=== PATIENT | female | born 1945 | race Caucasian/White ===

== ENCOUNTER → 2023-06-10 08:30 | Outpatient (REF) | payer MEDICARE, OTHER, SELFPAY ==
[2023-06-10 12:59] LABS: % Basophils 1.1 % (0-2); % Eosinophils 3.1 % (0-6); % Immature Granulocytes 0.4 % (0-0.5); % Lymphocytes 24.7 % (20.5-51.1); % Monocytes 9.2 % (1.7-9.3); % Neutrophils 61.5 % (42.2-75.2); Absolute Basophils 0.1 10^3/uL (0-0.2); Absolute Eosinophils 0.2 10^3/uL (0-0.7); Absolute Lymphocytes 1.3 10^3/uL (1.2-3.4); Absolute Monocytes 0.5 10^3/uL (0.1-0.6); Absolute Neutrophils 3.2 10^3/uL (1.4-6.5); Hematocrit 39.2 % (37.0-47.0); Hemoglobin 12.6 g/dL (12.0-16.0); Mean Corp Hgb Conc. 32.1 g/dL (33.0-37.0); Mean Corpuscular Hgb 29.7 pg (27.0-31.0); Mean Corpuscular Volume 92.5 fL (81.0-99.0); Mean Platelet Volume 10.6 fL (7.4-10.4); Nucleated Red Blood Cells % 0 %; Platelet Count 273 10^3/uL (130-400); Red Blood Cell Count 4.24 10^6/uL (4.20-5.40); Red Cell Dist. Width 12.8 % (11.5-14.5); White Blood Cell Count 5.2 10^3/uL (4.8-10.8)
[2023-06-10 13:09] LABS: Erythrocyte Sed Rate 10 mm/hour (0-20)
[2023-06-10 13:14] LABS: NT-proBNP 131 pg/ml
[2023-06-10 13:16] LABS: C-Reactive Protein < 5.00 mg/L (0.0-10.00)
[2023-06-10 13:26] LABS: ALT (SGPT) < 10 U/L (0-35); AST (SGOT) 27 U/L (14-36); Albumin 4.3 g/dl (3.5-5.0); Alkaline Phosphatase 72 U/L (38-126); Blood Urea Nitrogen 20 mg/dl (7-17); Calcium 9.4 mg/dl (8.4-10.2); Carbon Dioxide 30 mmol/L (22-30); Chloride 99 mmol/L (98-107); Glucose 106 mg/dl (70-99); Potassium 4.5 mmol/L (3.5-5.1); Sodium 135 mmol/L (135-145); Total Bilirubin 0.8 mg/dl (0.2-1.3); Total Cholesterol 240 mg/dl (50-199); Total Protein 6.9 g/dl (6.3-8.2); Triglyceride 78 mg/dl (10-149); Very Low Density Lipoprotein 15 mg/dl (0-30); eGFR > 60.00
[2023-06-10 13:36] LABS: HDL Cholesterol 122 mg/dl; LDL Cholesterol, Calculated 103 mg/dl
[2023-06-10 13:46] LABS: TSH Reflex To Free T4 1.62 uIU/ml (0.47-4.68)
[2023-06-11 15:52] LABS: Rheumatoid Agglutinin Positive (<10 IU)
[2023-06-11 17:07] LABS: Rheumatoid Agg. Semi-quant 1024 IU
[2023-06-12 15:35] LABS: ANA, IgG Reflex to HEp-2 Detected (None Detected)
[2023-06-16 10:36] LABS: ANA Pattern Homogeneous; ANA, HEp-2, IgG Detected (<1:80)
== END ==
LOC: HWLAB 08:30
PROVIDERS: ATTENDING PHYSICIAN Nurse Practitioner Family
DX: Z76.89 Persons encountering health services in other specified circumstances (principal); G20.A1 Parkinson's disease without dyskinesia, without mention of fluctuations; R22.0 Localized swelling, mass and lump, head; R51.9 Headache, unspecified; H92.03 Otalgia, bilateral; R07.9 Chest pain, unspecified; R06.02 Shortness of breath
CPT/HCPCS: 36415; 80053; 80061; 83880; 84443; 85025; 85652; 86038; 86039; 86140; 86430; 86431; 93005

== ENCOUNTER → 2023-07-07 09:32 | Outpatient (REF) | payer MEDICARE, OTHER, SELFPAY | LOC: PAVMRI 09:32 | PROVIDERS: ATTENDING PHYSICIAN Nurse Practitioner Family | DX: R22.0 Localized swelling, mass and lump, head (principal); R51.9 Headache, unspecified | CPT/HCPCS: 70553; A9575 ==

== ENCOUNTER → 2023-08-20 15:57 | Outpatient (REF) | payer MEDICARE, OTHER, SELFPAY ==
[2023-08-20 17:08] LABS: Urine Albumin Negative (Neg - Trace); Urine Bilirubin Negative (Negative); Urine Character Clear (Clear); Urine Color Yellow; Urine Glucose Negative (Negative); Urine Ketone Negative (Negative); Urine Leukocyte Trace (Negative); Urine Nitrite Negative (Negative); Urine Occult Blood Negative (Negative); Urine Urobilinogen Negative (Neg - 1+); Urine pH 6.5 (5.0-9.0)
[2023-08-20 17:32] LABS: Urine Red Blood Cell 0-2 /HPF (0-2)
[2023-08-20 17:33] LABS: Urine Bacteria Few (Negative)
[2023-08-20 17:34] LABS: Erythrocyte Sed Rate 12 mm/hour (0-20)
[2023-08-20 17:38] LABS: Complement C3 112 mg/dl (88-165); IgG 962 mg/dl (700-1600)
[2023-08-20 17:52] LABS: Protein/creatinine Ratio 0.5; Urine Protein 13 mg/dl
[2023-08-20 17:58] LABS: TSH Reflex To Free T4 1.91 uIU/ml (0.47-4.68)
[2023-08-20 18:33] LABS: Hepatitis B Surface Antigen Negative (Negative)
[2023-08-20 18:51] LABS: Hepatitis B Surface Antibody Negative
[2023-08-21 12:45] LABS: HIV Combo Negative (Negative)
[2023-08-22 11:53] LABS: Thyroid Peroxidase Ab (TPO) <0.3 IU/mL (0.0-9.0)
[2023-08-22 21:34] LABS: ds-DNA Ab, IgG Reflex To Titer 6 IU (0-24)
[2023-08-22 21:44] LABS: ANA, IgG Reflex to HEp-2 Detected (None Detected)
[2023-08-22 22:35] LABS: CCP Antibody IgG/IgA 4 Units (0-19)
[2023-08-22 22:44] LABS: Thyroid Stim. Immunoglobulin <0.10 IU/L (<=0.54)
[2023-08-23 00:24] LABS: HCV Quant by NAAT IU/mL Not Detected; HCV Quant by NAAT Interp Not Detected (Not Detected); HCV Quant by NAAT Log IU/mL Not Detected log IU/mL
[2023-08-23 07:34] LABS: SSA 52 (Ro)(ENA) Ab, IgG 7 AU/mL (0-40); SSA 60 (Ro)(ENA) Ab, IgG 4 AU/mL (0-40); SSB (La)(ENA) Ab, IgG 2 AU/mL (0-40)
== END ==
LOC: REG 15:57
PROVIDERS: ATTENDING PHYSICIAN Internal Medicine Rheumatology; FAMILY PHYSICIAN Nurse Practitioner Family
DX: E07.9 Disorder of thyroid, unspecified (principal); J34.89 Other specified disorders of nose and nasal sinuses; R20.0 Anesthesia of skin; R21 Rash and other nonspecific skin eruption; R76.8 Other specified abnormal immunological findings in serum
CPT/HCPCS: 36415; 81003; 81015; 82570; 82784; 83521; 84155; 84156; 84165; 84443; 84445; 85652; 86038; 86140; 86160; 86200; 86225; 86235; 86334; 86376; 86430; 86618; 86706; 87340; 87389; 87522

== ENCOUNTER → 2023-09-14 12:10 | Outpatient (REF) | payer MEDICARE, OTHER, SELFPAY ==
[2023-09-14 14:56] LABS: Blood Urea Nitrogen 18 mg/dl (7-17); Calcium 9.3 mg/dl (8.4-10.2); Carbon Dioxide 29 mmol/L (22-30); Chloride 101 mmol/L (98-107); Glucose 72 mg/dl (70-99); Potassium 4.4 mmol/L (3.5-5.1); Sodium 137 mmol/L (135-145); eGFR > 60.00
== END ==
LOC: REG 12:10
PROVIDERS: ATTENDING PHYSICIAN Nurse Practitioner Family
DX: R52 Pain, unspecified (principal); R51.9 Headache, unspecified; G20.A1 Parkinson's disease without dyskinesia, without mention of fluctuations; E78.2 Mixed hyperlipidemia
CPT/HCPCS: 36415; 80048

== ENCOUNTER → 2023-09-17 13:21 | Outpatient (REF) | payer MEDICARE, OTHER, SELFPAY | LOC: RAD 13:21 | PROVIDERS: ATTENDING PHYSICIAN Nurse Practitioner Family | DX: R52 Pain, unspecified (principal) | CPT/HCPCS: 71260; 74177; Q9967 ==

== ENCOUNTER → 2023-10-06 13:05 | Outpatient (REF) | payer MEDICARE, OTHER, SELFPAY | LOC: RAD 13:05 | PROVIDERS: ATTENDING PHYSICIAN Nurse Practitioner Family | DX: K11.8 Other diseases of salivary glands (principal) | CPT/HCPCS: 76536 ==

== ENCOUNTER → 2023-12-07 07:07 | Outpatient (REF) | payer MEDICARE, OTHER, SELFPAY | LOC: RAD 07:07 | PROVIDERS: ATTENDING PHYSICIAN Internal Medicine Geriatric Medicine | DX: G47.34 Idiopathic sleep related nonobstructive alveolar hypoventilation (principal) | CPT/HCPCS: 70486 ==

== ENCOUNTER 2024-03-26 11:08 | Inpatient (IN) | payer MEDICARE, OTHER, SELFPAY ==
[2024-03-25 10:08] VITALS: BP 174/71
--- NOTE | 2024-03-25 10:41 | ED.GENMED ---
History of Present Illness
General
Chief Complaint: Swallowing Problem
Time Seen by Provider: 03/25/24 10:28
History of Present Illness
History of Present Illness:
TIME OF INITIAL ENCOUNTER: 10:30 AM
HPI: Over the past couple of weeks, the patient's been having increasing trouble with swallowing with sensation of water/food getting stuck 'in my chest'. She was supposed to have a double esophagram contrast 30 today however the symptoms were so
severe that she could not go to the appointment. She states that she had a temperature of 102 last night. She states that there is 'something stuck in my chest'. Last week, she also was concerned because she had an episode where she lost vision
and hearing and family is concerned that maybe she had a stroke. She has not been to GI. Her primary care doctor ordered the esophagram study. She could not tell me clearly what she last ate at 3 PM yesterday.
EXAM:
GENERAL: Appears rather uncomfortable
HEENT: Slightly dry oral mucosa
CARDIOVASCULAR: No murmurs, normal heart rate, regular rhythm, No chest wall tenderness
PULMONARY: No respiratory distress, breath sounds are clear and equal
ABDOMEN: Soft with no peritoneal signs, no tenderness
NEUROLOGIC: Some choreoathetoid kind of movements noted spontaneously
PSYCHIATRIC: Appropriate mental status, normal insight and judgement
EXTREMITIES: Nontender, no edema, moves all extremities equally
SKIN: No rash, no lesions
NUMBER AND COMPLEXITY OF PROBLEMS ADDRESSED AT THE ENCOUNTER
� Chronic conditions affecting care: Parkinson's
� Acute Exacerbation and/or Progression of Chronic Illness: This is an acute problem
� Differential Diagnosis includes: Esophageal dysmotility, esophageal stricture, viral syndrome, anemia
AMOUNT AND/OR COMPLEXITY OF DATA TO BE REVIEWED AND ANALYZED
� I performed an independent evaluation of and my interpretation is:
EKG:
CT:
X-rays:
Laboratory Studies: Flu positive, white count 4.7, sodium 128
Other:
� Review of other/old records: The patient was here in 2022 with a skin tear
� Clinical information was obtained by an independent historian: I spoke to and daughter at bedside
� Prescriptions/Medications Considered but not given:
� Further testing considered but not performed:
RISK OF COMPLICATIONS AND/OR MORBIDITY OR MORTALITY OF PATIENT MANAGEMENT
� Social determinants of health affecting care: Lives at home
� Discussion with other providers:
� Escalation of care including admission/observation vs risk of discharge considered: Initially, when the patient started drinking water she had tremendous difficulty and pain with getting the water down. I gave glucagon,
Pepcid, and fluids. Pain persisted. She also has other concerns including dizziness and had a fever last night�she is flu positive. I discussed with GI, Dr. Hernández who suggested we obtain a CT of the chest. CT shows no obvious abnormality to the
esophagus.
ANY OTHER UPDATES:
3:30 PM: The patient was able to get some sips of water down however feels that it 'is still building up and feels that she cannot drink anything further.
4 PM: The patient still has rather significant discomfort when she takes anything p.o. Family concerned because she has been having poor p.o. intake and her sodium is already low. I have concerned about her going home and continuing not being able
to drink. She has been having dizziness/vertiginous symptoms as well.
Phy Exam
Physical Exam
Physical Exam:
See HPI
Course
Orders/Labs/Results
Orders:
Orders
03/25/24 10:42
0.9% Sodium Chloride 500 ml [Nss] 500 ml IV BOLUS
Famotidine [Pepcid] 20 mg IV NOW STA
Glucagon [GlucaGen] 1 mg IV NOW STA
Ondansetron Injectable [Zofran] 4 mg IV NOW STA
CR Chest Portable - 1 View Urgent
Comment:
Reason For Exam: sob chest pain
Reason Study Needs to be Portable: Unable to Transport
03/25/24 10:45
Electrocardiogram (*1) Urgent
Reason for Study: Chest Pain
EKG- Treatment ONCE
03/25/24 11:08
Complete Blood Count/With Diff Urgent
Comprehensive Metabolic Panel Urgent
Lipase Urgent
03/25/24 11:28
COVID-19 Antigen Urgent
Source: Nasal Swab
Influenza A+B Rapid Molecular Urgent
JACK Source: Nasal Swab
Specimen Description:
03/25/24 13:44
CT Chest With Iv Contrast Urgent
Comment:
Reason For Exam: chest pain, trouble swallowing, esoph issue?
03/25/24 14:24
Lorazepam [Ativan] 0.5 mg IV NOW STA
Lorazepam [Ativan] 2 mg .ROUTE .STK-MED ONE
03/25/24 Dinner
IDDSI 4 - Pureed
At Your Request: Limited Participation
03/25/24 15:35
Pantoprazole [Protonix IV] 40 mg IV NOW STA
03/25/24 16:25
Admit/Transfer Patient As Directed
Co-Sign Provider:
Level of Care: Observation services
Assign to:: Medical/Surgical
Physician / Group: dajuan
Diagnosis: influenza, dysphagia
03/25/24 16:26
Code Status As Directed
Resuscitation Status: Full Code
PRN Pain Medication Management As Directed
May give lesser potent ordered pain med per pt: Yes
preference::
Protocol:: Medication orders for pain may be administered in a
manner that supports deferring to patient preference
when the pt is:
- Requesting an ordered lesser potent pain medication.
Least to most potent pain medications are defined
as: acetaminophen < NSAID < tramadol < opioids
(morphine, oxycodone, hydromorphone).
- Requesting a lesser dose of the same medication IF
ORDERED.
- Requesting a less intrusive route of administration
if both routes are prescribed by the provider (PO <
IV).
03/25/24 19:42
Acetaminophen [Tylenol] 650 mg PO Q4HPRN PRN
03/25/24 19:42
GASTROINTESTINAL CONSULT Routine
Consulting Provider: Lui Hernández
Was physician already notified: Yes
Activity As Directed
Activity Level: As Tolerated
Vital Signs As Directed
Frequency: Per unit guidelines
RF Esophagus-Double Contrast Routine
Comment:
Reason For Exam: dysphagia
Speech Therapy Eval & Treat Routine
DX Deep Vein Thrombosis Video Routine
03/25/24 20:00
Heparin 5,000 units SC Q12
Oseltamivir Phosphate [Tamiflu] 75 mg PO BID
03/26/24 06:00
Complete Blood Count/With Diff IN AM
Comprehensive Metabolic Panel IN AM
Abnormal Lab Results
03/25/24
11:08
WBC 4.7 L 10^3/uL
(4.8-10.8)
Abs Immat Gran (auto) 0.2 H 10^3/uL
(0-0.05)
Absolute Lymphs (auto) 0.2 L 10^3/uL
(1.2-3.4)
Immature Gran % 3.6 H %
(0-0.5)
Neutrophils % 82.1 H %
(42.2-75.2)
Lymphocytes % 3.8 L %
(20.5-51.1)
Monocytes % 9.7 H %
(1.7-9.3)
Sodium 128 L mmol/L
(135-145)
Chloride 90 L mmol/L
(98-107)
Creatinine 0.5 L mg/dL
(0.6-1.0)
Glucose 119 H mg/dl
(70-99)
Calcium 8.2 L mg/dl
(8.4-10.2)
03/25/24 11:08
03/25/24 11:08
Vital Signs
Initial and Last Documented VS:
Initial Vital Signs
Temp Pulse Resp BP Pulse Ox
37.4 C 77 18 174/71 97
03/25/24 10:08 03/25/24 10:08 03/25/24 10:08 03/25/24 10:08 03/25/24 10:08
Last Documented Vital Signs
Temp Pulse Resp BP Pulse Ox
37.1 C 90 17 160/70 97
03/25/24 23:26 03/25/24 23:26 03/25/24 23:26 03/25/24 23:26 03/25/24 23:26
*Critical Care Note
Total Time (30-74mins, 75-104mins- exclusive of procedures): Not Applicable
ED Attending Note
-
Portions of this chart may have been created with voice recognition software.� Occasional wrong word or��sound alike� substitutions may have occurred due to the inherent limitations of voice recognition software.
Discharge Plan
Departure
Patient Disposition: Admit
Date of Disposition: 03/25/24
Time of Disposition: 15:42
Presentation/result/management discussed w/ accepting MD/DO: Hospitalist
Patient with high blood pressure during this ER visit?: Yes
Discharge Problem:
Esophagitis
Interventions
Interventions:
*Risk Screen - Suicide Last Done: 03/25/24 10:08
*General Assessment Last Done: 03/25/24 10:08
*Neglect/Abuse Screening Last Done: 03/25/24 11:10
ED- Fall Risk Assessment Last Done: 03/25/24 11:24
*ED COVID-19 Vaccine History Last Done: 03/26/24 01:53
*Nursing Disposition Last Done: 03/25/24 19:40
TZ-Sxqivy-Zkgbytavis Assessment Last Done: 03/25/24 11:24
ED-EENT Assessment Last Done: 03/25/24 11:24
ED- Neurological Assessment Last Done: 03/25/24 11:24
ED- Pulmonary Assessment Last Done: 03/25/24 11:24
ED Swallowing Screen Last Done: 03/25/24 17:33
Discharge Date and Time
Discharge Date/Time: 03/25/24 19:40
[2024-03-25 11:12] VITALS: BMI 27.1
[2024-03-25] MEDS: PEPCID 20 MG IV (11:13)
[2024-03-25] MEDS: ZOFRAN 4 MG IV (11:13)
[2024-03-25] MEDS: GlucaGen 1 MG IV (11:14)
[2024-03-25] MEDS: NSS 500 IV (11:14)
[2024-03-25 11:46] LABS: ALT (SGPT) < 10 U/L (0-35); AST (SGOT) 30 U/L (14-36); Albumin 4.1 g/dl (3.5-5.0); Alkaline Phosphatase 78 U/L (38-126); Blood Urea Nitrogen 11 mg/dl (7-17); Calcium 8.2 mg/dl (8.4-10.2); Carbon Dioxide 29 mmol/L (22-30); Chloride 90 mmol/L (98-107); Estimated Creatinine Clearance 67 ml/min; Glucose 119 mg/dl (70-99); Lipase 39 U/L (23-300); Potassium 4.3 mmol/L (3.5-5.1); Sodium 128 mmol/L (135-145); Total Bilirubin 0.8 mg/dl (0.2-1.3); Total Protein 6.7 g/dl (6.3-8.2); eGFR > 60.00
[2024-03-25 12:00] VITALS: BP 164/78
[2024-03-25 12:00] LABS: % Basophils 0.8 % (0-2); % Immature Granulocytes 3.6 % (0-0.5); % Lymphocytes 3.8 % (20.5-51.1); % Monocytes 9.7 % (1.7-9.3); % Neutrophils 82.1 % (42.2-75.2); Absolute Immature Granulocytes 0.2 10^3/uL (0-0.05); Absolute Lymphocytes 0.2 10^3/uL (1.2-3.4); Absolute Monocytes 0.5 10^3/uL (0.1-0.6); Absolute Neutrophils 3.9 10^3/uL (1.4-6.5); Hematocrit 37.1 % (37.0-47.0); Hemoglobin 12.7 g/dL (12.0-16.0); Mean Corp Hgb Conc. 34.2 g/dL (33.0-37.0); Mean Corpuscular Hgb 29.6 pg (27.0-31.0); Mean Corpuscular Volume 86.5 fL (81.0-99.0); Mean Platelet Volume 10.2 fL (7.4-10.4); Nucleated Red Blood Cells % 0 %; Platelet Count 192 10^3/uL (130-400); Red Blood Cell Count 4.29 10^6/uL (4.20-5.40); Red Cell Dist. Width 12.6 % (11.5-14.5); White Blood Cell Count 4.7 10^3/uL (4.8-10.8)
[2024-03-25 12:00] LABS: COVID-19 Antigen Negative (Negative)
[2024-03-25] MEDS: ATIVAN 0.5 MG IV (14:26)
[2024-03-25] MEDS: PROTONIX IV 40 MG IV (15:42)
--- NOTE | 2024-03-25 16:37 | HPS.HSE ---
Family Physician
-
Family Physician: Lloyd Mendoza
Chief Complaint
-
swallowing difficulty
History of Present Illness
78-year-old female past medical history of Parkinson's, anxiety, presenting with multiple complaints. She has been having head pressure involving her sinuses for the past several months as well as spitting up phlegm after eating for several months.
Over the past week she has developed sensation of food and liquids getting stuck in her chest. Sometimes she has to vomit because the food will not pass.
Over the weekend she had an episode where she lost her vision and hearing which came back after an hour.
Over the past few days she has developed cough, fevers. Had a temperature of 102 last night. Has been having constipation last bowel movement 2 days ago.
Medical History
Past Medical History
Past Medical History: Reports Other (Parkinson's, anxiety,)
Past Surgical History: Reports None
Social History
Tobacco: Non-smoker
Alcohol: None
Drug: None
Family History
Family History: Not pertinent
Allergies / Home Medications
Allergies reflects when Allergies were last updated in [facility].
Home Medications with original date entered in [facility]
Allergy/Medication List:
Allergies
Allergy/AdvReac Type Severity Reaction Status Date / Time
No Known Allergies Allergy Verified 03/25/24 10:11
Home Medications
omeprazole magnesium 20 mg capsule,delayed release 40 mg (2 x 20 mg) PO BID #56 caps 03/25/24
Review of Systems
-
History Source: Patient
A 12 point ROS was completed and negative except as noted: Yes
Constitutional: Reports No Symptoms
EENT: Reports See HPI
Respiratory: Reports See HPI
Cardiac: Reports No Symptoms
Abdomen/GI: Reports See HPI
: Reports No Symptoms
Musculoskeletal: Reports No Symptoms
Skin: Reports No Symptoms
Neurological: Reports No Symptoms
Endocrine: Reports No Symptoms
Hematologic/Lymphatic: Reports No Symptoms
Psych: Reports No Symptoms
Physical Exam
Vital Signs
Vital Signs
Temp Pulse Resp BP Pulse Ox
99.4 F 79 18 164/78 95
03/25/24 10:08 03/25/24 16:00 03/25/24 10:08 03/25/24 12:00 03/25/24 15:05
Physical Exam
General: Well Developed, Well Nourished and No Apparent Distress
HEENT: NormoCephalic, Moist mucous membranes and Atraumatic
Respiratory: Clear
Cardiac: S1/S2 and Regular Rhythm; No Murmur or Rub
GI: Soft, Non Tender, Non Distended and Normal Bowel Sounds; No Organomegaly
Rectal: Deferred by Provider
Musculoskeletal: No Clubbing, No Cyanosis and No Edema
Skin: No Rash
Neuro: Nonfocal/grossly intact
Laboratory Results
-
03/25/24 11:08
03/25/24 11:08
Laboratory Results
Total Bilirubin 0.8 mg/dl (0.2-1.3) 03/25/24 11:08
AST 30 U/L (14-36) 03/25/24 11:08
ALT < 10 U/L (0-35) 03/25/24 11:08
Alkaline Phosphatase 78 U/L (38-126) 03/25/24 11:08
Lipase 39 U/L (23-300) 03/25/24 11:08
Data Reviewed
-
Lab Data: Labs Reviewed by me
Old Records: Reviewed
Impression/Plan
-
IMPRESSION:
PLAN:
# Influenza A infection
-Today's third day symptoms
-Leukopenia
-CT chest negative
-Tylenol, Tamiflu
# Dysphagia
-Given glucagon in ER
-Supposed to have esophagram as outpatient today
-Pepcid, Protonix given
-Check speech and swallow
-Check esophagram
-Pur�ed diet
-GI consulted
# Mild hyponatremia secondary to decreased p.o. intake from dysphagia/influenza
-IV fluids given
-Continue to monitor
# Agitation likely secondary to anxiety
-Given Ativan
-Continue duloxetine
Parkinson's disease
-Continue carbidopa-levodopa, ropinirole
Full code
DVT prophylaxis�heparin
Regular diet
[2024-03-25 20:25] VITALS: BP 171/71; BMI 26.5
[2024-03-25] MEDS: HEPARIN 5000 UNITS SC (22:46)
[2024-03-25] MEDS: REQUIP 4 MG PO (22:47)
[2024-03-25] MEDS: SINEMET 25-100 2 TABLET PO (22:47)
[2024-03-25] MEDS: TAMIFLU 75 MG PO (22:48)
[2024-03-25 23:26] VITALS: BP 160/70
[2024-03-26 08:00] VITALS: BP 151/74
--- NOTE | 2024-03-26 08:34 | CON.GI ---
Consultation
-
Date/Time Consultation Requested: 03/25/241941
Date/Time Consultation Performed: 03/26/24 0830
Requesting Provider: Dr Love
Performing Provider: Dr Lui Hernández / Mirna Spivey PA-C
Reason for Consultation: dysphagia
Medical History
Chief Complaint / HPI
Chief Complaint: Dysphagia
History of Present Illness:
This is an 78 year old female with a past medical history of Parkinson's disease, anxiety, positive for influenza A who has complained of swallowing issues for the past month. She describes a sensation of food 'getting stuck' and going down slowly,
progressively increasing and worsening in the past month. No heartburn, reflux or nausea. She did vomit yesterday. No abdominal pain or chest pain. She does admit to 'coughing up a lot of mucus.' She was supposed to get an outpatient barium
esophagram yesterday but felt worse, with fever up to 102 yesterday, so came to the ER. She was given glucagon in the ER. Labs showed positive flu A. Chest CT showed no acute abnormalities with unremarkable appearance of the thoracic esophagus.
Patient is a former smoker (quit 40 years ago). She denies alcohol or drug use. She does take ibuprofen 600mg on daily basis for pain. She has never had an endoscopy. Patient took her medications with applesauce yesterday with no issues and has been
tolerating sips of water without difficulty.
Past Medical History
Past Medical History: Other (Parkinsons, anxiety)
Past Surgical History: None
Social History
Tobacco: Former Smoker
Alcohol: None
Drug: None
Family History
Family History: Other (brother had colon cancer, age 50)
Allergies / Home Medications
Allergy/AdvReac Type Severity Reaction Status Date / Time
No Known Allergies Allergy Verified 03/25/24 10:11
�Medication �Instructions �Recorded
carbidopa 25 mg-levodopa 100 mg 2 tab PO QID 03/25/24
tablet
duloxetine 60 mg capsule,delayed 60 mg PO DAILY 03/25/24
release
ropinirole 4 mg tablet 4 mg PO HS 03/25/24
Review of Systems
-
History Source: Patient
All other systems: A 12 pt ROS was Negative except as stated above in HPI
Vital Signs
Temp Pulse Resp BP Pulse Ox
98.7 F 90 17 160/70 97
03/25/24 23:26 03/25/24 23:26 03/25/24 23:26 03/25/24 23:26 03/25/24 23:26
Physical Exam
Exam
General: Well Developed, Well Nourished and No Apparent Distress
Respiratory: Clear
Cardiac: Regular Rhythm
GI: Soft, Non Tender, Non Distended and Normal Bowel Sounds
Skin: Warm and Dry
Neuro: AO x 3
Psych: Calm
Results
WBC 4.7 10^3/uL (4.8-10.8) L 03/25/24 11:08
Hgb 12.7 g/dL (12.0-16.0) 03/25/24 11:08
Hct 37.1 % (37.0-47.0) 03/25/24 11:08
MCV 86.5 fL (81.0-99.0) 03/25/24 11:08
Plt Count 192 10^3/uL (130-400) 03/25/24 11:08
Absolute Neuts (auto) 3.9 10^3/uL (1.4-6.5) 03/25/24 11:08
Sodium 128 mmol/L (135-145) L 03/25/24 11:08
Potassium 4.3 mmol/L (3.5-5.1) 03/25/24 11:08
Chloride 90 mmol/L (98-107) L 03/25/24 11:08
Carbon Dioxide 29 mmol/L (22-30) 03/25/24 11:08
BUN 11 mg/dl (7-17) 03/25/24 11:08
Creatinine 0.5 mg/dL (0.6-1.0) L 03/25/24 11:08
Calcium 8.2 mg/dl (8.4-10.2) L 03/25/24 11:08
Total Bilirubin 0.8 mg/dl (0.2-1.3) 03/25/24 11:08
AST 30 U/L (14-36) 03/25/24 11:08
ALT < 10 U/L (0-35) 03/25/24 11:08
Alkaline Phosphatase 78 U/L (38-126) 03/25/24 11:08
Lipase 39 U/L (23-300) 03/25/24 11:08
Diagnostic Image Results:
Chest CT 03/25/24:
1. No acute disease within the chest.
2. Gross unremarkable appearance of the thoracic esophagus. No mediastinal masses or areas of extrinsic compression identified. No hiatal hernia.
3. Age-indeterminate mild compression deformity of the L1 vertebral body, new compared to the prior CT from 09/17/2023.
Prior GI Procedures:
EGD: never
Colonoscopy: ~3-4 years ago, normal per patient
Assessment / Plan
-
78 year old female with Parkinson's, anxiety, currently influenza A positive with complaints of progressively worsening dysphagia to solid food for the past month. Currently tolerating applesauce and water without issue.
IMPRESSION / PLAN:
Dysphagia
- barium esophagram has been ordered; await results
- dysphagia may be secondary to underlying Parkinson's vs esophagitis vs stricture/mass
- Speech therapy consult
- to consider endoscopy outpatient pending upper GI series results
All other medical problems managed per hospitalist.
-
-
Thank you for consultation and allowing me to participate in the patient's care. Please call the court liaison GI physician during the after hours with any questions or concerns.
[2024-03-26 09:00] VITALS: BP 151/74
[2024-03-26] MEDS: SINEMET 25-100 2 TABLET PO ×4 (09:02→21:31)
[2024-03-26] MEDS: TAMIFLU 75 MG PO ×2 (09:07→19:47)
[2024-03-26] MEDS: HEPARIN 5000 UNITS SC ×2 (09:07→19:48)
[2024-03-26] MEDS: CYMBALTA DELAYED RELEASE 60 MG PO (09:07)
[2024-03-26 09:11] LABS: ALT (SGPT) < 10 U/L (0-35); AST (SGOT) 35 U/L (14-36); Albumin 3.9 g/dl (3.5-5.0); Alkaline Phosphatase 89 U/L (38-126); Blood Urea Nitrogen 11 mg/dl (7-17); Calcium 8.4 mg/dl (8.4-10.2); Carbon Dioxide 33 mmol/L (22-30); Chloride 94 mmol/L (98-107); Estimated Creatinine Clearance 58 ml/min; Glucose 103 mg/dl (70-99); Potassium 3.7 mmol/L (3.5-5.1); Sodium 133 mmol/L (135-145); Total Bilirubin 0.7 mg/dl (0.2-1.3); Total Protein 6.4 g/dl (6.3-8.2); eGFR > 60.00
[2024-03-26 09:41] LABS: % Basophils 0.7 % (0-2); % Immature Granulocytes 0.7 % (0-0.5); % Lymphocytes 26.3 % (20.5-51.1); % Neutrophils 53.3 % (42.2-75.2); Absolute Lymphocytes 0.7 10^3/uL (1.2-3.4); Absolute Monocytes 0.5 10^3/uL (0.1-0.6); Absolute Neutrophils 1.5 10^3/uL (1.4-6.5); Hematocrit 39.2 % (37.0-47.0); Hemoglobin 13.3 g/dL (12.0-16.0); Mean Corp Hgb Conc. 33.9 g/dL (33.0-37.0); Mean Corpuscular Volume 88.3 fL (81.0-99.0); Mean Platelet Volume 10.4 fL (7.4-10.4); Nucleated Red Blood Cells % 0 %; Platelet Count 204 10^3/uL (130-400); Red Blood Cell Count 4.44 10^6/uL (4.20-5.40); Red Cell Dist. Width 12.6 % (11.5-14.5); White Blood Cell Count 2.7 10^3/uL (4.8-10.8)
--- NOTE | 2024-03-26 09:57 | PTOTSP ---
Speech Pathology
Clinical Swallow Evaluation
78F with Parkinson's disease, admitted for influenza and dysphagia symptoms.
P/w clinical s/s of an impaired oropharyngeal swallow characterized by odynophagia, increased phlegm production post swallow, and regurgitation of liquids and solids. Suspect esophageal component, esophagram planned.
Limited trials presented this date due to pt complaints of severe odynophagia and epigastric pain with initial PO trials.
Recommend:
1. Puree (IDDSI 4), thin liquids
2. Meds as best tolerated, likely whole in puree
3. Aspiration precautions - small bites, single sips, slow rate, cyclic ingestion ([id number]-wosr-sip)
4. Reflux precautions - upright with meals, upright at least 30 minutes post meal
5. Consider possible video swallow study via outpatient pending esophagram
6. Consider outpatient speech therapy for Parkinson's dx (also notes difficulty with speech, voice, and cognitive-linguistic skills)
7. [employer]ATMENT SUPERVISOR to follow up re: to assess tolerance of current diet level and upgrade as able; provide dysphagia tx at the acute care level; cognitive linguistic evaluation as able
--- NOTE | 2024-03-26 11:29 | CON.NEURO ---
Neuro Assessment/Plan
Assessment
Acute onset ataxia in addition to vertigo patient with a prior history of Parkinson's disease diagnosed in 2008
Plan
check orthostatics
Continue duloxetine
Provide entacapone to add to the patient's usual carbidopa/levodopa in hopes of reducing freezing episodes that the patient describes
Patient may require amantadine dosing routinely to reduce dyskinesias
Agree with speech and physical therapy to improve dysphagia and gait
Will follow peripherally
Consultation
Order
Date of Consultation: 03/26/24
Requesting Provider: Hospitalist
Reason for Consult: Gait dysfunction
Subjective/Objective
Subjective Data
Date of Service: March 26, 2024
Right-Handed
Patient presented to this [facility] emergency department 1 day ago due to long-term swallowing dysfunction beginning approximately 1 month prior to that presentation (January 2024).
Having: light-headedness, dizziness (near constant), falling three times in past year.
No longer has a routine neurologist. Diagnosed in 2008 with Parkinson disease due to tremors (patient provided incorrect date). Unclear testing performed to confirm the diagnosis.
Previously treated with physical therapy. Prior medication Carbidopa/Levodopa and Ropinirole, no change in dosing of medications recently. Previous medication of Sertraline and Duloxetine.
Patient has a long-term history of intractable headaches for which she underwent MRI of the brain in July 2023 which was described as unremarkable and the official report.
Objective Data
Vital Signs
Temp Pulse Resp BP Pulse Ox
37.4 C 79 18 151/74 98
03/26/24 08:00 03/26/24 08:00 03/26/24 08:00 03/26/24 08:00 03/26/24 08:00
Lab Results
03/26/24 08:24
03/26/24 08:24
Sodium 133 mmol/L (135-145) L 03/26/24 08:24
Potassium 3.7 mmol/L (3.5-5.1) 03/26/24 08:24
BUN 11 mg/dl (7-17) 03/26/24 08:24
Glucose 103 mg/dl (70-99) H 03/26/24 08:24
Calcium 8.4 mg/dl (8.4-10.2) 03/26/24 08:24
Patient Allergies
No Known Allergies Allergy (Verified 03/25/24 10:11)
Review of Systems
-
History Source: Patient and Family
All other systems: Reviewed and negative
EENT: Blurry Vision (starting 2 months ago) and Swallowing Difficulty (2 months ago)
Respiratory: Trouble Breathing
Cardiac: Chest Pain
Abdomen/GI: Constipated; Negative Incontinence of Stool
Genitourinary: Negative Incontinence
Musculoskeletal: Back Pain and Neck Pain
Neuro: Dizzy and Headache (5x/week)
Physical Exam
-
General: No Apparent Distress and Appears Stated Age
Eyes: Round OU, [place] Conjunctivae and No Ptosis; Negative Able to visualize OU
HEENT: Anicteric and Moist Mucous Membranes
Neck: Full Range of Motion
Respiratory: No Dyspnea
Cardiac: No JVD
GI: Non-distended
Skin: Unremarkable
Extremities: No Clubbing, No Cyanosis and No Edema
Psych: Intact Judgement/Insight
Extended Neurological Exam
Mood & Affect: Anxious
Attention Span & Concentration: Awake, Alert, Interactive and No Difficulty with 2 Step Request
Memory: Unremarkable
Tremor: Hand Tremor Absent and Head Tremor Absent
Involuntary Movement: Other (dyskinesia)
Speech: Quantity Unremarkable and Other (deep)
Cranial Nerve II: Left Eye: Pupillary Reactivity Unremarkable, Pupillary Size Unremarkable and Visual Brandon Intact
Cranial Nerve II: Right Eye: Pupillary Reactivity Unremarkable, Pupillary Size Unremarkable and Visual Brandon Intact
Cranial Nerves III, IV, : Extraocular Movement: Extraocular Movement Full in all Directions and Slow Saccades
Cranial Nerve VII: Facial Symmetry: Normal Facial Symmetry
Cranial Nerve VIII: Hearing: Unremarkable Hearing to Normal Conversational Volume
Cranial Nerves IX, X: Palate Movement: Palate Elevation Symmetric
Cranial Nerve XI: Shoulder Shrug: Unremarkable
Cranial Nerve XII: Tongue Protusion: Midline
Muscle Strength, Overall: Full Throughout
Muscle Bulk & Tone: Bulk Unremarkable and Tone Unremarkable
Pronator Drift: No Drift in Upper Extremities and No Drift in Lower Extremities
Deep Tendon Reflexes: Trace Throughout
Touch Sensation: Unremarkable
Coordination: Wifjwq-lkom-xbvqba Testing Unremarkable and Fqvp-Lnkh-Jurl movements intact bilaterally
Babinski Sign: Absent Bilaterally
Data Reviewed
-
MRI Head: Report Reviewed and Image Reviewed (July 2023)
Labs: Report Reviewed
Reviewed with: Physician, Patient and Family
Old Records: Summarized
Medications
-
Active Medications
Generic Name Dose Route Start Last Admin
Trade Name Freq PRN Reason Stop Dose Admin
Acetaminophen 650 mg 03/25/24 19:42
Acetaminophen 325 Mg Tablet PO 04/22/24 19:41
Q4HPRN PRN
mild pain/SANCHEZ/temp> 100.4F
Bisacodyl 10 mg 03/26/24 11:07
Bisacodyl 10 Mg Rectal Suppository RECTAL 04/23/24 11:06
DAILYPRN PRN
constipation
Carbidopa/Levodopa 2 tablet 03/25/24 22:00 03/26/24 09:02
Carbidopa (25 Mg)/Levodopa (100 Mg) Regular Release Tablet PO 04/22/24 21:59 2 tablet
QID ROHITH Administration
Duloxetine HCl 60 mg 03/26/24 08:00 03/26/24 09:07
Duloxetine Delayed Release 60 Mg Capsule PO 04/23/24 07:59 60 mg
DAILY ROHITH Administration
Heparin Sodium 5,000 units 03/25/24 20:00 03/26/24 09:07
Heparin 5,000 Units/Ml 1 Ml Vial SC 04/22/24 19:59 5,000 units
Q12 ROHITH Administration
Oseltamivir Phosphate 75 mg 03/25/24 20:00 03/26/24 09:07
Oseltamivir (Tamiflu) 75 Mg Capsule PO 03/30/24 19:59 75 mg
BID ROHITH Administration
Polyethylene Glycol 17 grams 03/26/24 12:00
Polyethylene Glycol Powder 17 Grams Packet PO 04/23/24 11:59
DAILY ROHITH
Ropinirole HCl 4 mg 03/25/24 23:00 03/25/24 22:47
Ropinirole 2 Mg Tablet PO 04/22/24 22:59 4 mg
HS ROHITH Administration
Sodium Chloride 0 flush 03/25/24 20:00
Sodium Chloride 0.9% (Flush) Syringe IV 04/22/24 19:59
PER PROTOCOL ROHITH
Home Medications
�Medication �Instructions �Recorded
carbidopa 25 mg-levodopa 100 mg 2 tab PO QID PARKINSONS 03/25/24
tablet
duloxetine 60 mg capsule,delayed 60 mg PO DAILY Mental 03/25/24
release Health/Anxiety
ropinirole 4 mg tablet 4 mg PO HS RESTLESS LEG 03/25/24
Past History
Past History
ED Past Medical History: Cancer (Parotid gland tumor with resection 2009), Psychiatric (Generalized anxiety disorder) and Other (Parkinson disease diagnosed 2008, esophageal dysphagia, positive [facility] August 2023)
ED Past Surgical History: Other (Parotid gland tumor resection 2009, sinus surgery 2008)
Social History
Tobacco: Other (Distant history of smoking)
Alcohol: None
Drug: None
Family History
Family History: Other (Reviewed and noncontributory)
--- NOTE | 2024-03-26 12:41 | W.PN.HOSP.TC ---
Today's Communication/Plan
-
Esophagram
PT/OT
Neurology consult
Assessment / Plan
Assessment / Plan
Gen-AAOx3, NAD
HEENT-NC, AT, anicteric, clear oral mm
Neck-supple
CV-reg, no M, +S1/S2
Lungs-mild end expiratory wheezing bilaterally
Abd-soft, NT, ND
Ext-no edema
Musculoskeletal-no cyanosis, clubbing
Skin-warm and dry
Neuro-grossly non-focal
Psych-calm, cooperative
Acute influenza A infection -continue Tamiflu. Chest x-ray clear, CT chest shows no acute disease in the chest.
Progressive dysphagia, odynophagia -await esophagram. CT chest without obvious esophageal disease. Speech therapy recommends pur�ed diet, aspiration precautions. GI consult noted, awaiting upper GI series. If reassuring then recommendation is
for outpatient follow-up with EGD. GI service notes globus sensation as possible etiology for her symptoms.
Gait ataxia, vertigo -unclear if central versus peripheral etiology. Denies positional component, but vertigo worse with ambulation. No nystagmus on exam. Consult neurology. PT/OT.
Leukopenia -unclear if due to acute infection versus other etiology. ANC 1500. Monitor for now.
Hyponatremia -suspect hypovolemic. Improving with hydration.
Parkinson's disease -continue Sinemet. She states her neurologist has moved to [place]. She currently does not have a neurologist locally.
Full code
updated at the bedside.
Anticipated Discharge: > 48 hours
Subjective/Interval History
-
Date of Service: March 26, 2024
Patient seen and examined. Complaining of vertigo with ambulation, unsteady gait, trouble swallowing, pain with swallowing. Cough.
Objective Data
-
Labs:
Laboratory Results
03/26/24
08:24
WBC 2.7 L
Hgb 13.3
Hct 39.2
Plt Count 204
Sodium 133 L
Potassium 3.7
Chloride 94 L
Carbon Dioxide 33 H
BUN 11
Creatinine 0.7
Glucose 103 H
Calcium 8.4
Total Bilirubin 0.7
AST 35
ALT < 10
Alkaline Phosphatase 89
Vital Signs:
Vital Signs
Temp Pulse Resp BP Pulse Ox
99.3 F 79 18 151/74 98
03/26/24 08:00 03/26/24 08:00 03/26/24 08:00 03/26/24 08:00 03/26/24 08:00
I&O
03/25/24 03/26/24 03/27/24
06:59 06:59 06:59
Output Total 600 / 600
Balance -600 / -600
Review of Systems
-
History Source: Patient
All other systems: Reviewed and negative
[2024-03-26] MEDS: COMTAN 200 MG PO ×3 (13:10→21:31)
[2024-03-26] MEDS: MIRALAX 17 GRAMS PO (13:10)
[2024-03-26 15:05] VITALS: BP 101/73
[2024-03-26 16:08] VITALS: BP 112/58; PULSE 69; O2SAT 96
[2024-03-26 16:35] VITALS: BP 114/64; BP 136/60; BP 97/60; PULSE 67; PULSE 74; PULSE 81
--- NOTE | 2024-03-26 17:14 | PTCARENOTE ---
patient lying B/P 136/60- hr 67, Sit b/p 114/64 and her 74, Standing bp 97/60, hr 87 does c/o vertigo at times with ambulation. c/o constipation this am and started on Miralax and encouraged to eat foods with high fiber and was continent of mod and
large stool in BR (see stool documentation). c/o feeling of 'food being stuck' and pain with swallowing. c/o cough. no s/s of aspiration. Dr. Pham made aware of orthostasis. will encourage PO intake and he may order abdominal binder. will
continue to monitor.
[2024-03-26] MEDS: REQUIP 4 MG PO (21:31)
[2024-03-26 23:40] VITALS: BP 116/52
[2024-03-27 07:02] LABS: Hematocrit 36.9 % (37.0-47.0); Hemoglobin 12.9 g/dL (12.0-16.0); Mean Corpuscular Volume 85.8 fL (81.0-99.0); Mean Platelet Volume 10.2 fL (7.4-10.4); Platelet Count 189 10^3/uL (130-400); Red Cell Dist. Width 12.7 % (11.5-14.5); White Blood Cell Count 2.6 10^3/uL (4.8-10.8)
[2024-03-27 07:05] LABS: Blood Urea Nitrogen 14 mg/dl (7-17); Calcium 8.6 mg/dl (8.4-10.2); Carbon Dioxide 32 mmol/L (22-30); Chloride 91 mmol/L (98-107); Estimated Creatinine Clearance 58 ml/min; Glucose 86 mg/dl (70-99); Potassium 3.8 mmol/L (3.5-5.1); Sodium 129 mmol/L (135-145); eGFR > 60.00
[2024-03-27 08:05] LABS: Band Neutrophils 0 % (0-3); Lymphocytes 54 % (20-51); Monocytes 17 % (2-9); Segmented Neutrophils 29 % (42-75)
[2024-03-27 08:06] LABS: Normal RBC Morphology Yes; Platelets Checked Yes; Total Cells Counted 100
[2024-03-27 08:07] LABS: Absolute Neutrophils -Man Diff 0.7 10^3/uL (1.4-6.5)
--- NOTE | 2024-03-27 08:15 | W.PN.NEURO.1 ---
Today's Communication / Plan
-
Abdominal binder for orthostasis
Orthostatic BP checks to be continued
Continue duloxetine
Initiated entacapone to add to the patient's usual carbidopa/levodopa in hopes of reducing freezing episodes that the patient describes
Neuro Assessment/Plan
Assessment
Acute onset ataxia in addition to vertigo patient with a prior history of Parkinson's disease diagnosed in 2008
Found to have orthostasis
Plan
Abdominal binder for orthostasis
Orthostatic BP checks to be continued
Continue duloxetine
Initiated entacapone to add to the patient's usual carbidopa/levodopa in hopes of reducing freezing episodes that the patient describes
Patient may require amantadine dosing routinely to reduce dyskinesias
Agree with speech and physical therapy to improve dysphagia and gait
Will follow peripherally
Subjective/Objective
Subjective Data
Date of Service: March 27, 2024
Objective Data
Vital Signs
Temp Pulse Resp BP Pulse Ox
36.3 C 65 20 116/52 96
03/26/24 23:40 03/26/24 23:40 03/26/24 23:40 03/26/24 23:40 03/26/24 23:40
Lab Results
03/27/24 06:00
03/27/24 06:00
Sodium 129 mmol/L (135-145) L 03/27/24 06:00
Potassium 3.8 mmol/L (3.5-5.1) 03/27/24 06:00
BUN 14 mg/dl (7-17) 03/27/24 06:00
Glucose 86 mg/dl (70-99) 03/27/24 06:00
Calcium 8.6 mg/dl (8.4-10.2) 03/27/24 06:00
Patient Allergies
No Known Allergies Allergy (Verified 03/25/24 10:11)
Data Reviewed
-
Orthostatic Testing: Ordered and Report Reviewed
Labs: Report Reviewed
Reviewed with: Physician
Old Records: Summarized
Past History
Past History
ED Past Medical History: Cancer (Parotid gland tumor with resection 2009), Psychiatric (Generalized anxiety disorder) and Other (Parkinson disease diagnosed 2008, esophageal dysphagia, positive [facility] August 2023)
ED Past Surgical History: Other (Parotid gland tumor resection 2009, sinus surgery 2008)
Social History
Tobacco: Other (Distant history of smoking)
Alcohol: None
Drug: None
Family History
Family History: Other (Reviewed and noncontributory)
Medications
-
Medications:
Generic Name Dose Route Start Last Admin
Trade Name Freq PRN Reason Stop Dose Admin
Acetaminophen 650 mg 03/25/24 19:42
Acetaminophen 325 Mg Tablet PO 04/22/24 19:41
Q4HPRN PRN
mild pain/SANCHEZ/temp> 100.4F
Bisacodyl 10 mg 03/26/24 11:07
Bisacodyl 10 Mg Rectal Suppository RECTAL 04/23/24 11:06
DAILYPRN PRN
constipation
Carbidopa/Levodopa 2 tablet 03/25/24 22:00 03/26/24 21:31
Carbidopa (25 Mg)/Levodopa (100 Mg) Regular Release Tablet PO 04/22/24 21:59 2 tablet
QID ROHITH Administration
Duloxetine HCl 60 mg 03/26/24 08:00 03/26/24 09:07
Duloxetine Delayed Release 60 Mg Capsule PO 04/23/24 07:59 60 mg
DAILY ROHITH Administration
Entacapone 200 mg 03/26/24 13:00 03/26/24 21:31
Entacapone 200 Mg Tablet PO 04/23/24 12:59 200 mg
QID ROHITH Administration
Heparin Sodium 5,000 units 03/25/24 20:00 03/26/24 19:48
Heparin 5,000 Units/Ml 1 Ml Vial SC 04/22/24 19:59 5,000 units
Q12 ROHITH Administration
Oseltamivir Phosphate 75 mg 03/25/24 20:00 03/26/24 19:47
Oseltamivir (Tamiflu) 75 Mg Capsule PO 03/30/24 19:59 75 mg
BID ROHITH Administration
Polyethylene Glycol 17 grams 03/26/24 12:00 03/26/24 13:10
Polyethylene Glycol Powder 17 Grams Packet PO 04/23/24 11:59 17 grams
DAILY ROHITH Administration
Ropinirole HCl 4 mg 03/25/24 23:00 03/26/24 21:31
Ropinirole 2 Mg Tablet PO 04/22/24 22:59 4 mg
HS ROHITH Administration
Sodium Chloride 0 flush 03/25/24 20:00
Sodium Chloride 0.9% (Flush) Syringe IV 04/22/24 19:59
PER PROTOCOL ROHITH
[2024-03-27 08:30] VITALS: BP 146/74
[2024-03-27] MEDS: COMTAN 200 MG PO ×4 (08:43→21:33)
[2024-03-27] MEDS: CYMBALTA DELAYED RELEASE 60 MG PO (08:43)
[2024-03-27] MEDS: TAMIFLU 75 MG PO ×2 (08:43→21:33)
[2024-03-27] MEDS: SINEMET 25-100 2 TABLET PO ×4 (08:43→21:34)
[2024-03-27] MEDS: HEPARIN 5000 UNITS SC ×2 (08:46→21:31)
[2024-03-27] MEDS: MIRALAX 17 GRAMS PO (08:52)
[2024-03-27] MEDS: XANAX 0.25 MG PO (10:30)
[2024-03-27 10:41] VITALS: BP 142/70
--- NOTE | 2024-03-27 12:05 | W.PN.HOSP.TC ---
Today's Communication/Plan
-
PT/OT
Speech
TEDS
Abdominal binder
Esophagram
Assessment / Plan
Assessment / Plan
Gen-AAOx3, NAD
HEENT-NC, AT, anicteric, clear oral mm
Neck-supple
CV-reg, no M, +S1/S2
Lungs-mild end expiratory wheezing bilaterally
Abd-soft, NT, ND
Ext-no edema
Musculoskeletal-no cyanosis, clubbing
Skin-warm and dry
Neuro-grossly non-focal
Psych-calm, cooperative
Acute influenza A infection -continue Tamiflu. Chest x-ray clear, CT chest shows no acute disease in the chest.
Progressive dysphagia, odynophagia -await esophagram. CT chest without obvious esophageal disease. Speech therapy recommends pur�ed diet, aspiration precautions. GI consult noted, awaiting upper GI series. If reassuring then recommendation is
for outpatient follow-up with EGD. GI service notes globus sensation as possible etiology for her symptoms.
Gait ataxia, vertigo -seen by Neurology who feels that orthostatic hypotension is the cause. TEDS, abdominal binder. Add Midodrine if no improvement.
Leukopenia -unclear if due to acute infection versus other etiology. ANC 1500. Monitor for now.
Hyponatremia -check urine studies, fluid restrict.
Parkinson's disease -continue Sinemet. She states her neurologist has moved to [place]. She currently does not have a neurologist locally.
Full code
Anticipated Discharge: 24 - 48 hours
Subjective/Interval History
-
Date of Service: March 27, 2024
Patient seen/examined. No complaints.
Objective Data
-
Labs:
Laboratory Results
03/27/24
06:00
WBC 2.6 L
Hgb 12.9
Hct 36.9 L
Plt Count 189
Sodium 129 L
Potassium 3.8
Chloride 91 L
Carbon Dioxide 32 H
BUN 14
Creatinine 0.7
Glucose 86
Calcium 8.6
Vital Signs:
Vital Signs
Temp Pulse Resp BP Pulse Ox
97.6 F 77 16 146/74 96
03/27/24 08:30 03/27/24 08:30 03/27/24 08:30 03/27/24 08:30 03/27/24 08:30
I&O
03/26/24 03/27/24 03/28/24
06:59 06:59 06:59
Intake Total 2039
Output Total 600 / 600
Balance -600 / -600 2039
Review of Systems
-
History Source: Patient
All other systems: Reviewed and negative
[2024-03-27 15:25] VITALS: BP 94/48
--- NOTE | 2024-03-27 19:02 | PTCARENOTE ---
Pt complaining of anxiety in am, notified and stella ordered PRN. In the afternoon, BP 94/48 and notifed. Pt states she hasn't been drinking many fluids today, so fluid intake encouraged by this RN. notified and instructed to apply TEDs and
abdominal binder. 1 hr later, pt called stating she cannot breathe with the constriction from both TEDs and abdominal binder and refused to wear them any longer. Bed/chair alarms in place, call ponce within reach. Will continue to monitor.
[2024-03-27 21:30] VITALS: BP 133/66
--- NOTE | 2024-03-27 21:30 | PTCARENOTE ---
This RN discussed abdominal binder and MARANDA stockings with patient. Patient stated they made her feel very uncomfortable and she did not want to wear them. Purpose of interventions explained to patient. Patient stated she would be agreeable to
wearing MARANDA stockings in the morning but did not want to wear abdominal binder stating, 'I can't breath in it. I already have enough problems, I do not need another one by wearing this and feeling uncomfortable.' Care ongoing.
[2024-03-27] MEDS: REQUIP 4 MG PO (21:34)
[2024-03-27 23:00] VITALS: BP 131/54
[2024-03-28 01:07] LABS: Osmolality Urine 276 mOsm/kg (300-900)
[2024-03-28 01:14] LABS: Urine Sodium 11 mmol/L (30-90)
[2024-03-28 03:00] VITALS: BP 108/75; BP 141/70; BP 155/68; PULSE 64; PULSE 67; PULSE 71
[2024-03-28 07:30] VITALS: BP 161/78
[2024-03-28] MEDS: CYMBALTA DELAYED RELEASE 60 MG PO (08:47)
[2024-03-28] MEDS: TAMIFLU 75 MG PO (08:47)
[2024-03-28] MEDS: MIRALAX 17 GRAMS PO (08:47)
--- NOTE | 2024-03-28 08:50 | PTCARENOTE ---
having a panic attack. She has baseline Parkinson's disease and has orthostatic hypotension and intermittent dizziness withstanding. She reports she gets extremely anxious at home and here has been having intermittent panic attacks. They tried
giving her Xanax yesterday but apparently it made her more hypotensive but it calmed her down. Notified Dr. Rg and he said Xanax is preferred medication of choice. Also, may add Midodrine since patient is refusing to wear stocking and abd
binder as ordered. will continue to monitor.
[2024-03-28] MEDS: SINEMET 25-100 2 TABLET PO ×2 (08:53→13:24)
[2024-03-28] MEDS: COMTAN 200 MG PO ×2 (08:53→13:24)
[2024-03-28] MEDS: HEPARIN 5000 UNITS SC (08:55)
[2024-03-28] MEDS: XANAX 0.25 MG PO ×2 (09:01→14:36)
--- NOTE | 2024-03-28 09:50 | PTCARENOTE ---
patient anxiety less after PRN Xanax, will continue to monitor.
--- NOTE | 2024-03-28 13:19 | PTOTSP ---
SPEECH THERAPY SWALLOW THERAPY FOLLOW UP NOTE:
Patient exhibits grossly functional oropharyngeal swallow at this time. Suspect primary esophageal dysphagia given complaints of frequent globus sensation in substernal area, eructation, and vomiting/regurgitation. Recommend diet upgrade to Regular
texture solids (currently on IDDSI Level 4 Puree), continue thin liquids. General aspiration and reflux precautions. Meds as best tolerated. Continue to recommend GI consult if not already on board. Videofluoroscopic Swallowing Study is not
indicated at this time as patient's complaints of dysphagia/odynophagia are largely esophageal in nature. Recommending outpatient Speech Therapy consult to further assess voice/cognitive linguistic skills. ST to continue to follow at the acute care
level.
RECOMMEND:
1) Diet upgrade to Regular texture solids, thin liquids
2) General aspiration and reflux precautions
3) Meds as best tolerated
4) GI consult
5) OP ST services
6) ST to follow at the acute care level
--- NOTE | 2024-03-28 13:25 | W.DCSUMMARY ---
Addendum entered and electronically signed by Rylan Cotter DO 03/28/24 15:24:
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
Original Note:
Discharge Summary
Discharge Data
Date of Admission: 03/26/24
Date of Discharge: 03/28/24
-
Pending Results: No
Hospital Course
Ms. Ye is an 78-year-old female with medical history of Parkinson's disease and anxiety who presented with fever and cough for 2 days prior to arrival. She also reported difficulty swallowing which has been ongoing for several months. She
tested positive for influenza A and was started on oseltamivir. Imaging of her chest showed no evidence of superimposed pneumonia and did not reveal any obvious causes for her difficulty swallowing. She reports progressively worsening difficulty
swallowing solids and liquids, with the sensation that the food intermittently gets stuck in her chest and sometimes causes her to vomit. She is generally able to tolerate a p.o. diet if she eats slowly and take small bites. She was evaluated by
speech and language pathology who recommended a diet of regular texture solids and thin liquids. She will need close follow-up in the outpatient gastroenterology office for endoscopy to evaluate esophageal pathology which is likely related to her
Parkinson's disease. She was evaluated by neurology who recommended adding entacapone to her regimen of Sinemet. Abdominal binder was added to help with her episodes of orthostatic hypotension due to her Parkinson's disease. Also of note, she was
found to be mild to moderately hyponatremic which is likely due to poor p.o. intake due to esophageal issues and recent influenza infection. She was given isotonic fluids and p.o. intake was encouraged. She was also found to have a low white count
which may also be due to her acute viral illness and should be monitored in outpatient setting. She will be discharged to home with a prescription to complete 2 more days of oseltamivir. She currently does not have a neurologist, and so should
establish a new neurologist as soon as possible.
Gen-AAOx3, NAD
HEENT-NC, AT, anicteric, clear oral mm
Neck-supple
CV-reg, no M, +S1/S2
Lungs-clear B/L
Abd-soft, NT, ND
Musculoskeletal-no edema, no deformity
Skin-warm and dry
Neuro-resting tremor, no focal weakness
Psych-mildly anxious, cooperative
Discharge Plan
-
Patient Disposition: Home (Routine Discharge)
Discharge Diagnosis/Procedures: Odynophagia, orthostatic hypotension
Diet: As tolerated
Blood Work: Repeat CBC and BMP (blood work)
Other Services: VN
Activity Restrictions/Additional Instructions:
Ms. Ye is an 78-year-old female with medical history of Parkinson's disease and anxiety who presented with fever and cough for 2 days prior to arrival. She also reported difficulty swallowing which has been ongoing for several months. She
tested positive for influenza A and was started on oseltamivir. Imaging of her chest showed no evidence of superimposed pneumonia and did not reveal any obvious causes for her difficulty swallowing. She reports progressively worsening difficulty
swallowing solids and liquids, with the sensation that the food intermittently gets stuck in her chest and sometimes causes her to vomit. She is generally able to tolerate a p.o. diet if she eats slowly and take small bites. She was evaluated by
speech and language pathology who recommended a diet of regular texture solids and thin liquids. She will need close follow-up in the outpatient gastroenterology office for endoscopy to evaluate esophageal pathology which is likely related to her
Parkinson's disease. She was evaluated by neurology who recommended adding entacapone to her regimen of Sinemet. Abdominal binder was added to help with her episodes of orthostatic hypotension due to her Parkinson's disease. Also of note, she was
found to be mild to moderately hyponatremic which is likely due to poor p.o. intake due to esophageal issues and recent influenza infection. She was given isotonic fluids and p.o. intake was encouraged. She was also found to have a low white count
which may also be due to her acute viral illness and should be monitored in outpatient setting. She will be discharged to home with a prescription to complete 2 more days of oseltamivir. She currently does not have a neurologist, and so should
establish a new neurologist as soon as possible.
Please follow-up closely with gastroenterology to schedule an esophagram.
Please follow-up with your primary care provider to monitor your blood work, specifically to monitor your white blood cell count and your serum sodium level.
Please establish care with a new neurologist as soon as possible to continue management of your Parkinson's disease..
Referrals:
Lloyd Mendoza MD [Family Provider] -
Prescriptions:
New
entacapone 200 mg Tablet
200 mg PO QID Qty: 120 0RF
oseltamivir 75 mg Capsule
75 mg PO BID 2 Days Qty: 4 0RF
docusate sodium [Colace] 100 mg capsule
100 mg PO DAILY Qty: 30 0RF
Continued
carbidopa-levodopa 25-100 mg Tablet
2 tab PO QID
ropinirole 4 mg Tablet
4 mg PO HS
duloxetine 60 mg Capsule,Delayed Release(Dr/Ec)
60 mg PO DAILY
Discharge Orders:
Discharge Patient (As Directed); Ordered 03/28/24
Ordered By: Rylan Cotter
Discharge Date and Time
Print Language: LITHUANIAN
[2024-03-28 14:26] VITALS: BP 130/60
[2024-03-28 14:35] VITALS: BP 130/60
--- NOTE | 2024-03-28 14:39 | PN.CDI ---
CDI
- -
CDI:
Physician Documentation Request
Admit Date: 03/26/24 11:08
Dear Doctor Cyndee,
Please review the following and provide your response in the progress notes.
Clinical Indicators:
Pt admitted with Influenza A infection, dysphagia, and Parkinson's disease.
03/27 Neuro: 'Acute onset ataxia in addition to vertigo patient with a prior history of Parkinson's disease diagnosed in 2008
Found to have orthostasis.
03/28 Discharge Summary: 'Abdominal binder was added to help with her episodes of orthostatic hypotension due to her Parkinson's disease.
Please provide, in your documentation the suspected or likely etiology of the orthostatic hypotension, such as:
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
Orthostatic Hypotension Only
Other
Use of terms such as suspected, likely, concern for, or probable (associated with a specific diagnosis that is being evaluated, monitored, or treated as if it exists) are acceptable and can be coded in the inpatient setting, when documented at the
time of discharge.
Thank you,
Yeni Franklin RN, BSN
CDI Specialist
[place] [facility]
Please use your independent medical judgment in providing your response.
--- NOTE | 2024-03-28 14:40 | CM ---
Met with patient to obtain information. Patient stated that she lives with her spouse, who was at bedside, in a one story home with one step to enter. Patient described herself as independent with her Bathing, dressing and spouse and cleaning
woman/friend assists with home care assistant, cooking, cleaning, laundry and patient stated she can prepare her own meals. Patient's cleaning woman comes in close to 10 hours a week per spouse.
Patient's cleaning woman, spouse and family transport patient to her appointments and do all of the shopping.
Patient reported that she has had PT for the past year through [facility].
Besides her Scooter, she also has a walker and a cane.
Patient has a prescription plan and uses, [facility] in [place] for all of her medications.
Patient's PCP is Dr. Mendoza.
Patient was asked about her thoughts regarding rehab and she stated that she would not like to transfer. Patient's spouse agreed. Patient stated that she would like a resumption on care through [facility]. Will send referral.
Patient was having panic attack in room at time of assessment, updated RN who stated that she will discuss with attending.
Plan: Case management will continue to follow and assist with discharge planning. Home with [facility].
[2024-03-28 15:30] VITALS: BP 111/55
--- NOTE | 2024-03-28 15:39 | PTCARENOTE ---
patient having another panic attack, extremely anxious and hyperventilating. patient not due for Xanax. Notified Arcenio and requesting one time dose of Xanax or for Xanax frequency changed. He agreed. after Xanax given, patient doing
better. For discharge to home.
== END 2024-03-28 17:30 | disposition home or self-care (01) | DRG 57 ==
LOC: 3 WEST ACU 11:08
PROVIDERS: Hospitalist; ADMITTING PHYSICIAN Hospitalist; ATTENDING PHYSICIAN Internal Medicine; CONSULT PHYSICIAN Psychiatry & Neurology Neurology; CONSULT PHYSICIAN Student in an Organized Health Care Education/Training Program; EMERGENCY PHYSICIAN Emergency Medicine; FAMILY PHYSICIAN Internal Medicine Geriatric Medicine
DX: G20.A1 Parkinson's disease without dyskinesia, without mention of fluctuations (principal); E87.1 Hypo-osmolality and hyponatremia; G90.3 Multi-system degeneration of the autonomic nervous system; R13.10 Dysphagia, unspecified; J10.1 Influenza due to other identified influenza virus with other respiratory manifestations; D72.819 Decreased white blood cell count, unspecified; F41.9 Anxiety disorder, unspecified; K59.00 Constipation, unspecified; Z87.891 Personal history of nicotine dependence; Z80.0 Family history of malignant neoplasm of digestive organs; Z79.899 Other long term (current) drug therapy; Z85.89 Personal history of malignant neoplasm of other organs and systems; Z11.52 Encounter for screening for COVID-19
CPT/HCPCS: 71045; 71260; 80048; 80053; 83690; 83935; 84300; 85025; 87502; 87811; 92526; 92610; 93005; 96361; 96374; 96375; 97110; 97116; 97163; 97167; 99285; J1610; Q9967

== ENCOUNTER → 2024-04-04 12:41 | Outpatient (REF) | payer MEDICARE, OTHER, SELFPAY ==
[2024-04-04 13:50] LABS: % Basophils 0.2 % (0-2); % Eosinophils 0.8 % (0-6); % Immature Granulocytes 1.6 % (0-0.5); % Lymphocytes 22.4 % (20.5-51.1); % Monocytes 11.6 % (1.7-9.3); % Neutrophils 63.4 % (42.2-75.2); Absolute Immature Granulocytes 0.1 10^3/uL (0-0.05); Absolute Lymphocytes 1.1 10^3/uL (1.2-3.4); Absolute Monocytes 0.6 10^3/uL (0.1-0.6); Absolute Neutrophils 3.2 10^3/uL (1.4-6.5); Hematocrit 36.3 % (37.0-47.0); Hemoglobin 12.6 g/dL (12.0-16.0); Mean Corp Hgb Conc. 34.7 g/dL (33.0-37.0); Mean Corpuscular Hgb 30.1 pg (27.0-31.0); Mean Corpuscular Volume 86.6 fL (81.0-99.0); Mean Platelet Volume 10.1 fL (7.4-10.4); Nucleated Red Blood Cells % 0 %; Platelet Count 342 10^3/uL (130-400); Red Blood Cell Count 4.19 10^6/uL (4.20-5.40); Red Cell Dist. Width 12.7 % (11.5-14.5)
[2024-04-04 14:16] LABS: Blood Urea Nitrogen 12 mg/dl (7-17); Calcium 9.1 mg/dl (8.4-10.2); Carbon Dioxide 25 mmol/L (22-30); Chloride 95 mmol/L (98-107); Glucose 87 mg/dl (70-99); Potassium 4.7 mmol/L (3.5-5.1); Sodium 127 mmol/L (135-145); eGFR > 60.00
== END ==
LOC: REG 12:41
PROVIDERS: ATTENDING PHYSICIAN Internal Medicine; FAMILY PHYSICIAN Internal Medicine Geriatric Medicine
DX: R79.9 Abnormal finding of blood chemistry, unspecified (principal); R73.01 Impaired fasting glucose; R79.89 Other specified abnormal findings of blood chemistry
CPT/HCPCS: 36415; 80048; 85025

== ENCOUNTER → 2024-04-11 08:19 | Outpatient (REF) | payer MEDICARE, OTHER, SELFPAY | LOC: RAD 08:19 | PROVIDERS: ATTENDING PHYSICIAN Internal Medicine Geriatric Medicine | DX: G20.A1 Parkinson's disease without dyskinesia, without mention of fluctuations (principal); R73.01 Impaired fasting glucose; F41.9 Anxiety disorder, unspecified; M17.12 Unilateral primary osteoarthritis, left knee; G47.34 Idiopathic sleep related nonobstructive alveolar hypoventilation; Z13.89 Encounter for screening for other disorder; G44.211 Episodic tension-type headache, intractable; F41.1 Generalized anxiety disorder; R13.19 Other dysphagia; R93.7 Abnormal findings on diagnostic imaging of other parts of musculoskeletal system; G45.9 Transient cerebral ischemic attack, unspecified | CPT/HCPCS: 70496; 70498; Q9967 ==

== ENCOUNTER → 2024-04-15 09:06 | Outpatient (REF) | payer MEDICARE, OTHER, SELFPAY | LOC: RAD 09:06 | PROVIDERS: ATTENDING PHYSICIAN Internal Medicine Geriatric Medicine | DX: R13.19 Other dysphagia (principal) | CPT/HCPCS: 74221 ==

== ENCOUNTER → 2024-04-18 10:02 | Outpatient (REF) | payer MEDICARE, OTHER, SELFPAY ==
[2024-04-18 13:03] LABS: Blood Urea Nitrogen 12 mg/dl (7-17); Calcium 9.7 mg/dl (8.4-10.2); Carbon Dioxide 27 mmol/L (22-30); Chloride 99 mmol/L (98-107); Glucose 97 mg/dl (70-99); Potassium 4.3 mmol/L (3.5-5.1); Sodium 136 mmol/L (135-145); eGFR > 60.00
== END ==
LOC: REG 10:02
PROVIDERS: ATTENDING PHYSICIAN Internal Medicine
DX: E87.1 Hypo-osmolality and hyponatremia (principal)
CPT/HCPCS: 36415; 80048

== ENCOUNTER 2024-08-22 12:47 | Emergency (ER) | payer MEDICARE, OTHER, SELFPAY ==
[2024-08-22] VITALS (8 sets, daily range): BP systolic 97–194; BP diastolic 66–97
[2024-08-22 13:24] LABS: % Basophils 0.5 % (0-2); % Eosinophils 0.1 % (0-6); % Immature Granulocytes 0.4 % (0-0.5); % Lymphocytes 12.5 % (20.5-51.1); % Monocytes 10.7 % (1.7-9.3); % Neutrophils 75.8 % (42.2-75.2); Absolute Monocytes 0.8 10^3/uL (0.1-0.6); Absolute Neutrophils 5.9 10^3/uL (1.4-6.5); Hematocrit 35.9 % (37.0-47.0); Hemoglobin 12.8 g/dL (12.0-16.0); Mean Corp Hgb Conc. 35.7 g/dL (33.0-37.0); Mean Corpuscular Hgb 30.2 pg (27.0-31.0); Mean Corpuscular Volume 84.7 fL (81.0-99.0); Mean Platelet Volume 9.2 fL (7.4-10.4); Nucleated Red Blood Cells % 0 %; Platelet Count 276 10^3/uL (130-400); Red Blood Cell Count 4.24 10^6/uL (4.20-5.40); Red Cell Dist. Width 12.1 % (11.5-14.5); White Blood Cell Count 7.8 10^3/uL (4.8-10.8)
[2024-08-22 13:47] LABS: Troponin I < 0.012 ng/ml
[2024-08-22 13:52] LABS: ALT (SGPT) < 10 U/L (0-35); AST (SGOT) 20 U/L (14-36); Albumin 4.2 g/dl (3.5-5.0); Alkaline Phosphatase 54 U/L (38-126); Blood Urea Nitrogen 14 mg/dl (7-17); Calcium 9.2 mg/dl (8.4-10.2); Carbon Dioxide 25 mmol/L (22-30); Chloride 101 mmol/L (98-107); Glucose 85 mg/dl (70-99); Potassium 4.7 mmol/L (3.5-5.1); Sodium 130 mmol/L (135-145); Total Bilirubin 0.8 mg/dl (0.2-1.3); Total Protein 6.6 g/dl (6.3-8.2); eGFR > 60.00
--- NOTE | 2024-08-22 16:31 | ED.GENMED ---
History of Present Illness
General
Chief Complaint: Chest Pain
Source: patient
Time Seen by Provider: 08/22/24 16:14
History of Present Illness
History of Present Illness:
78-year-old female presents to the emergency room complaining of chest pain. Patient states she was awoken this morning around 6 AM with pain in her chest. It radiates up to her neck. Patient states the pain has been mostly constant though it may
wax and wane in intensity. She also has chronic pain in her left shoulder from a rotator cuff injury. This has been getting worse. This is worse with movement. Patient feels short of breath though she has no increased work of breathing. She
denies any cough. She denies any fever or chills. Patient states she was admitted here 6 months ago for esophagitis. She does have pain with swallowing on and off. Patient has Parkinson's disease and is overdue for her Parkinson's medication.
Past History
Past History
ED Past Medical History: Cancer (Parotid gland tumor with resection 2009), Psychiatric (Generalized anxiety disorder) and Other (Parkinson disease diagnosed 2008, esophageal dysphagia, positive [facility] August 2023)
ED Past Surgical History: Other (Parotid gland tumor resection 2009, sinus surgery 2008)
Social History
Tobacco: Other (Distant history of smoking)
Alcohol: None
Drug: None
Family History
Family History: Other (Reviewed and noncontributory)
Phy Exam
Physical Exam
Physical Exam:
General: Awake, Alert, Oriented X3. No acute distress, appears chronically ill
Vitals: unremarkable
Head: Atraumatic
Eyes: Pupils equal, EOMI
Throat: Airway intact, no exudates
Neck: Trachea midline
Lungs: Clear and equal b/l
Heart: Regular rate, no murmurs
Abd: Soft, Nontender, No pulsatile mass
Neuro: Nonfocal
Skin: Warm, dry, no rash
Extremities: pulses equal b/l, no edema
Scores
Heart Score for Chest Pain Patients
STEMI patient?: No
History: Slightly or Non-Suspicious
ECG: Nonspecific Repolarization
Age: >/= 65 years
Risk Factors: 1 or 2 Risk Factors
Troponin: </= Normal Limit
Heart Score for Chest Pain Patients: 4
Heart Score Risk: 20.3% MACE over next 6 weeks
Course
Orders/Labs/Results
Orders:
Orders
08/22/24 12:48
Electrocardiogram (*1) Urgent
Reason for Study: Chest Pain
EKG- Treatment ONCE
08/22/24 13:12
Complete Blood Count/With Diff Urgent
Comprehensive Metabolic Panel Urgent
Troponin I Urgent
08/22/24 16:27
Lorazepam [Ativan] 0.5 mg PO NOW STA
08/22/24 16:29
Mag Hydrox/Al Hydrox/Simeth [Maalox] 30 ml Phenobarb/Hyoscy/Atropine/Scop [] 10 ml PO NOW
08/22/24 16:30
CR Chest - 2 Views Urgent
Comment:
Reason For Exam: chest pain
08/22/24 16:37
Mag Hydrox/Al Hydrox/Simeth [Maalox] 30 ml .ROUTE .STK-MED ONE
Phenobarb/Hyoscy/Atropine/Scop [] 10 ml .ROUTE .STK-MED ONE
08/22/24 16:39
Carbidopa/Levodopa [Sinemet 25-100] 1.5 tablet PO NOW STA
Entacapone [Comtan] 200 mg PO NOW STA
08/22/24 16:49
Troponin I Urgent
Abnormal Lab Results
08/22/24
13:12
Hct 35.9 L %
(37.0-47.0)
Absolute Lymphs (auto) 1.0 L 10^3/uL
(1.2-3.4)
Absolute Monos (auto) 0.8 H 10^3/uL
(0.1-0.6)
Neutrophils % 75.8 H %
(42.2-75.2)
Lymphocytes % 12.5 L %
(20.5-51.1)
Monocytes % 10.7 H %
(1.7-9.3)
Sodium 130 L mmol/L
(135-145)
08/22/24 13:12
08/22/24 13:12
Vital Signs
Initial and Last Documented VS:
Initial Vital Signs
Temp Pulse Resp BP Pulse Ox
98.3 F 83 16 118/68 94
08/22/24 13:01 08/22/24 13:01 08/22/24 13:01 08/22/24 13:01 08/22/24 13:01
Last Documented Vital Signs
Temp Pulse Resp BP Pulse Ox
98.3 F 85 16 102/74 97
08/22/24 13:01 08/22/24 19:30 08/22/24 18:30 08/22/24 19:00 08/22/24 19:30
MDM/Problems Addressed
Differential Diagnosis Includes:
Angina, reflux, musculoskeletal pain, pneumonia, pneumothorax
MDM/Problems Addressed:
Patient presents with chest pain and some shortness of breath. Patient seems quite anxious. Labs here are reassuring. Patient had significant relief of her symptoms with a GI cocktail. Chest x-ray shows no acute abnormalities. EKG shows no
acute ischemic events. Her troponin is normal x 2. Patient stable for discharge home. Follow-up with cardiology as an outpatient.
*Radiology
Radiology exam reviewed: preliminary read by ED provider (No acute findings on my review)
*Pulse Oximetry
SaO2: 94
Oxygen Mode of Delivery: Room air
Patient hypoxic: no
*EKG
Interpreted by ED Provider?: Yes
Heart Rate: 81
Rate: normal
Rhythm: sinus
[place]: normal axis
Interval: normal interval
QRS Pattern: normal QRS
Ischemia: no ischemia
*Refining Supervisor Interpretation
Rate: normal
Interpretation: normal
Heart Rate: 81
Rhythm: sinus
*Critical Care Note
Total Time (30-74mins, 75-104mins- exclusive of procedures): Not Applicable
ED Attending Note
-
Portions of this chart may have been created with voice recognition software.� Occasional wrong word or��sound alike� substitutions may have occurred due to the inherent limitations of voice recognition software.
Discharge Plan
Departure
Patient Disposition: Home (Routine Discharge)
Date of Disposition: 08/22/24
Time of Disposition: 19:39
Patient with high blood pressure during this ER visit?: No
Condition: Good
Discharge Problem:
Chest pain, GERD (gastroesophageal reflux disease)
Instructions: Acid Reflux and GERD in Adults (DC), Chest Pain CBC Follow Up
Prescriptions:
No Action
carbidopa-levodopa 25-100 mg Tablet
2 tab PO QID
ropinirole 4 mg Tablet
4 mg PO HS
duloxetine 60 mg Capsule,Delayed Release(Dr/Ec)
60 mg PO DAILY
entacapone 200 mg Tablet
200 mg PO QID Qty: 120 0RF
oseltamivir 75 mg Capsule
75 mg PO BID 2 Days Qty: 4 0RF
docusate sodium [Colace] 100 mg capsule
100 mg PO DAILY Qty: 30 0RF
alprazolam [Xanax] 0.25 mg tablet
0.25 mg PO TID PRN (Reason: anxiety) Qty: 10 0RF
Referrals:
Lloyd Mendoza MD [Family Provider, Internal Medicine]
Activity Restrictions/Additional Instructions:
Your heart test here have been normal. Your chest x-ray shows no acute abnormalities. All your blood work is reassuring. Please follow your family doctor. I have given you discharge instructions which will trigger our cardiology group to give
you a call for follow-up. Your discomfort may be related to acid reflux. Until you follow-up with your doctors I recommend starting an [id number] course of omeprazole.
Interventions
Interventions:
*Risk Screen - Suicide Last Done: 08/22/24 13:01
*General Assessment Last Done: 08/22/24 17:21
*Neglect/Abuse Screening Last Done: 08/22/24 13:01
*ED- Fall Risk Assessment Last Done: 08/22/24 17:21
*ED COVID-19 Vaccine History Last Done: 08/22/24 17:21
*Nursing Disposition Last Done: 08/22/24 19:50
ED- Cardiac Assessment Last Done: 08/22/24 17:21
Discharge Date and Time
Discharge Date/Time: 08/22/24 20:02
Print Language: [place] ISLAND[place]
[2024-08-22] MEDS: MAALOX 40 PO (16:41)
[2024-08-22] MEDS: ATIVAN 0.5 MG PO (16:41)
[2024-08-22] MEDS: SINEMET 25-100 1.5 TABLET PO (17:10)
[2024-08-22] MEDS: COMTAN 200 MG PO (17:11)
[2024-08-22 17:33] LABS: Troponin I < 0.012 ng/ml
== END 2024-08-22 20:02 | disposition home or self-care (01) ==
LOC: EMR 12:47
PROVIDERS: Student in an Organized Health Care Education/Training Program; EMERGENCY PHYSICIAN Emergency Medicine; FAMILY PHYSICIAN Internal Medicine Geriatric Medicine
DX: R07.89 Other chest pain (principal); K21.9 Gastro-esophageal reflux disease without esophagitis; G20.A1 Parkinson's disease without dyskinesia, without mention of fluctuations; Z87.891 Personal history of nicotine dependence
CPT/HCPCS: 99283; 71046; 80053; 84484; 85025; 93005

== ENCOUNTER → 2024-09-14 12:37 | Outpatient (REF) | payer MEDICARE, OTHER, SELFPAY | LOC: CLAB 12:37 | PROVIDERS: ATTENDING PHYSICIAN Nurse Practitioner Adult Health | DX: R30.0 Dysuria (principal); S40.022A Contusion of left upper arm, initial encounter | CPT/HCPCS: 87086 ==

== ENCOUNTER 2024-09-20 05:22 | Observation (INO) | payer MEDICARE, OTHER, SELFPAY ==
[2024-09-19 20:51] VITALS: BP 115/56
[2024-09-19 21:22] LABS: Hematocrit 40.1 % (37.0-47.0); Hemoglobin 13.8 g/dL (12.0-16.0); Mean Corp Hgb Conc. 34.4 g/dL (33.0-37.0); Mean Corpuscular Volume 88.3 fL (81.0-99.0); Nucleated Red Blood Cells % 0 %; Platelet Count 318 10^3/uL (130-400); Red Cell Dist. Width 12.7 % (11.5-14.5)
[2024-09-19 21:37] LABS: ALT (SGPT) < 10 U/L (0-35); AST (SGOT) 19 U/L (14-36); Albumin 4.4 g/dl (3.5-5.0); Alkaline Phosphatase 73 U/L (38-126); Blood Urea Nitrogen 13 mg/dl (7-17); Calcium 9.2 mg/dl (8.4-10.2); Carbon Dioxide 24 mmol/L (22-30); Chloride 104 mmol/L (98-107); Glucose 119 mg/dl (70-99); Potassium 3.9 mmol/L (3.5-5.1); Sodium 134 mmol/L (135-145); Total Protein 6.8 g/dl (6.3-8.2); eGFR > 60.00
[2024-09-19 21:50] VITALS: BP 111/44
[2024-09-19 22:00] VITALS: BP 86/35
[2024-09-19 22:57] VITALS: BMI 26.6
--- NOTE | 2024-09-19 22:59 | ED.GENMED ---
History of Present Illness
General
Chief Complaint: Weakness
Source: patient
Time Seen by Provider: 09/19/24 22:20
Nursing documentation reviewed up to this point in time: agreed with
History of Present Illness
History of Present Illness:
Note:
CHIEF COMPLAINT(S)
Head pain following a fall, right kidney pain, and significant decline in cognitive function and mobility.
HISTORY OF PRESENT ILLNESS
The patient is an 79-year-old female who presents with significant changes in her health status. The patient experienced a fall the previous night, resulting in head trauma specifically around the neck and ears. She reports severe head pain today,
described as the worst shes experienced, occurring over the past week. She also reports severe pain in the right renal area.
The patient describes a marked decline in her ability to walk, communicate clearly, and perform previously manageable daily activities over the past week. She has a history of pain during urination and initial confusion related to a suspected
urinary tract infection (UTI) for which she was prescribed antibiotics twice daily for ten days. However, recent test results indicated the absence of a UTI. Further neurological evaluation was suggested given the decline in mental clarity.
The patients reports that her mental decline aligned with the onset of these symptoms and has been persistent. The patient has a longstanding history of complaints of chest pain, abdominal pain without clear etiology, and constant head
pressure.
ADDITIONAL HISTORY OBTAINED FROM SOURCES OTHER THAN THE PATIENT
According to the patient�s , the fall did not significantly alter her condition. He notes that she has Parkinsons disease and deals with persistent head pressure, worsening over the past week. He also reports ongoing abdominal and chest pain
complaints with previous evaluations including an EKG and blood work returning normal results. He mentions the patient has blurred vision and burning in her eyes, with previous ophthalmology visits showing no abnormalities.
EXTERNAL RECORDS REVIEWED
Blood work results were mentioned as normal, but no recent imaging records like a CT scan have been reviewed recently. A possible MRI for Parkinsons management was done previously.
CHRONIC MEDICAL CONDITIONS SIGNIFICANTLY AFFECTING CARE
The patient has a known history of Parkinsons disease, influencing her current presentation and cognitive function decline.
SOCIAL DETERMINANTS AFFECTING HEALTH
There are no significant social determinants impacting the immediate healthcare assessment as shared during this encounter.
MEDICATIONS
The patient was previously prescribed an unspecified antibiotic twice daily for a suspected urinary tract infection which should be considered as potentially inappropriate based on recent findings.
REVIEW OF SYSTEMS
- Head: Severe headache reported as pressure, considered worsening.
- Neurological: Decline in cognitive function and ability to perform daily tasks noted by the patient and her .
- Gastrointestinal: Reports of right-sided kidney pain, episodes of heartburn, and abdominal discomfort.
- Urinary: Pain during urination, inability to urinate effectively.
- Ophthalmological: Blurred vision and burning in the eyes.
PHYSICAL EXAM
General: Alert, cooperative but with some cognitive decline noted.
Skin: Warm, dry.
Head: Normocephalic, atraumatic.
Neck: Supple, trachea midline.
Eyes, Ears, Nose, Mouth, and Throat: Oral mucosa moist. Complains of ear pain.
Cardiovascular: Normal peripheral perfusion, no edema.
Respiratory: Respirations are non-labored.
Gastrointestinal: Reports of right-sided flank pain
Back: Normal range of motion, normal alignment.
Musculoskeletal: Normal ROM, reduced strength related to Parkinsons disease.
Neurological: Oriented to person, place, time, and situation but with a noted decline in speech and memory based on �s account.
Psychiatric: Appropriate mood & affect under the circumstances.
PROBLEM LIST
Acute:
1. Head trauma- CT Normal
2. Right renal area pain
3. Decreased cognitive function and mobility
Chronic:
1. Parkinsons disease
2. Persistent abdominal pain and chest pain
PLAN
1. Perform diagnostic imaging, starting with a CT scan of the abdomen, pending results from a straight catheter urine sample.
2. Conduct a thorough neurological assessment, with follow-up consideration for potential Parkinsons-related complications.
3. ?Discourage further use of antibiotics given the lack of evidence for a UTI.
4. Bladder scan to better assess urinary issues.
5. Encourage consistent follow-up with her neurologist and potentially a new urologist visit given the long gap in care.
DIFFERENTIAL DIAGNOSIS
The Differential Diagnosis includes, in no particular order and is not limited to:
1. Traumatic brain injury or subdural hematoma- Normal CT Head
2. Urinary tract infection with atypical presentation
3. Kidney stones or renal colic
4. Parkinson�s disease progression
5. Neurodegenerative disorder exacerbation
6. Intracranial hypertension
7. Visual disturbances secondary to ophthalmological issues- Seen by Ophtho multiple times
8. Medication adverse effects
9. Diabetes-related neuropathy (if applicable)
10. Dehydration or electrolyte imbalance affecting cognitive function
CARE-UPDATE
09/19/24 - 23:07
The patient has approximately 200 mL of fluid in the bladder, indicating the potential ability to urinate naturally. The plan is to administer fluids to encourage urination without resorting to catheterization. The patient reports an inability to
walk, but this is considered a separate issue possibly related to existing conditions. Despite several attempts, including prior to and after arrival, the patient has not been able to urinate. All current diagnostic tests returned normal results,
prompting continued investigation. Efforts will focus on achieving natural urination before proceeding with a CT scan to ensure its accuracy and relevance.
Disposition:
SUMMARY OF ENCOUNTER
The patient is an 79-year-old female with a history of Parkinson�s disease presenting to the emergency department following several falls over the last few weeks. She has reported significant weakness and difficulty ambulating. Initially treated for
a urinary tract infection (UTI), a follow-up from her family doctor confirmed the absence of a UTI. During evaluation, the patient�s symptoms indicated a marked decline in strength and mobility, prompting concerns for potential complications such as
bowel obstruction, but this was ruled out. Diagnostic imaging revealed an acute to subacute L1 vertebral compression fracture.
DISPOSITION
Admit.
ASSESSMENT
The patient presents with increased weakness and frequent falls, with findings of an L1 vertebral compression fracture.
PLAN
1. Admit patient for further management of increased weakness, frequent falls, and compression fracture.
2. Monitor neurological status in the context of Parkinson�s disease.
3. Address mobility concerns and consider physical therapy assessment.
4. Rule out potential underlying causes of weakness, including infectious and neurological etiologies.
INDEPENDENT REVIEW OF LABS AND INTERPRETATION OF TESTS
- My independent review of imaging studies confirms an acute to subacute L1 vertebral compression fracture, without evidence of bowel obstruction or perforation.
FOLLOW-UP INSTRUCTIONS
1. Close monitoring of neurological function and mobility during the hospital stay.
2. Coordination with a physical therapist for assessment and plan of care.
3. Consider follow-up with neurology and primary care to manage and adjust current Parkinson�s disease treatment regimen, ensuring comprehensive care.
MEDICAL DECISION MAKING
- Number and Complexity of Problems Addressed: Chronic conditions affecting care include Parkinson�s disease, frequent falls, and increased weakness.
- Data:
Category 1: Tests and documents reviewed include imaging studies confirming the L1 vertebral compression fracture.
Category 2: Clinical information obtained from the patient�s family noted progressive weakness over recent weeks.
- Risk: Given the complexity of the patients condition, hospitalization was deemed necessary for further evaluation and management to prevent further complications related to immobility and neurological decline.
DIAGNOSIS
1. Increased weakness with difficulty ambulating, ICD-10 R53.1
2. Frequent falls, ICD-10 R29.6
3. L1 vertebral compression fracture, ICD-10 M48.50
4. Parkinsons disease, ICD-10 G20
Past History
Past History
ED Past Medical History: Cancer (Parotid gland tumor with resection 2009), Psychiatric (Generalized anxiety disorder) and Other (Parkinson disease diagnosed 2008, esophageal dysphagia, positive [facility] August 2023)
ED Past Surgical History: Other (Parotid gland tumor resection 2009, sinus surgery 2008)
Social History
Tobacco: Other (Distant history of smoking)
Alcohol: None
Drug: None
Family History
Family History: Other (Reviewed and noncontributory)
Phy Exam
Physical Exam
Physical Exam:
.
Course
Orders/Labs/Results
Orders:
Orders
09/19/24 20:54
IV Insert/Care/Rem.- Treatment PRN
09/19/24 20:55
CT Head W/o Iv Contrast Urgent
Comment:
Reason For Exam: fall
09/19/24 21:04
Complete Blood Count/With Diff Urgent
Comprehensive Metabolic Panel Urgent
09/19/24 22:45
Bladder Scan- Treatment ONCE
Tian Placement- Treatment ONCE
Reason for insertion: Acute Retention
09/19/24 23:00
Urinalysis Reflex To Culture Urgent
Date Specimen was Collected: 09/19/24
Time Specimen was Collected: 21:09
09/19/24 23:03
0.9% Sodium Chloride 1000 ml [Nss] 1,000 ml IV BOLUS
09/20/24 00:48
Urine Microscopic Reflex Cult Urgent
Urine Culture Urgent
JACK Source: U
Specimen Description:
Date Specimen was Collected: 09/19/24
Time Specimen was Collected: 21:09
09/20/24 02:33
CT Abd/pelvis W Iv Cont Urgent
Comment:
Reason For Exam: hematuria, right flank pain
09/20/24 02:36
CefTRIAXone [Rocephin] 1,000 mg IV NOW STA
09/20/24 05:11
Admit/Transfer Patient As Directed
Co-Sign Provider:
Level of Care: Observation services
Assign to:: Medical/Surgical
Physician / Group: Monica
Diagnosis: weakness
PRN Pain Medication Management As Directed
May give lesser potent ordered pain med per pt: Yes
preference::
Protocol:: Medication orders for pain may be administered in a
manner that supports deferring to patient preference
when the pt is:
- Requesting an ordered lesser potent pain medication.
Least to most potent pain medications are defined
as: acetaminophen < NSAID < tramadol < opioids
(morphine, oxycodone, hydromorphone).
- Requesting a lesser dose of the same medication IF
ORDERED.
- Requesting a less intrusive route of administration
if both routes are prescribed by the provider (PO <
IV).
09/20/24 05:12
Code Status As Directed
Resuscitation Status: Full Code
09/20/24 Breakfast
Regular
At Your Request: Limited, [employer] Crewmember Required
09/20/24 07:17
0.9% Sodium Chloride 1000 ml [Nss] 1,000 ml IV 75 mls/hr
Acetaminophen [Tylenol] 650 mg PO Q4HPRN PRN
Bisacodyl [Dulcolax] 10 mg RECTAL [id number] PRN
Docusate W/Senna [Senokot-S] 1 tablet PO BIDPRN PRN
Ondansetron Injectable [Zofran] 4 mg IV Q6HPRN PRN
Polyethylene Glycol Powder [Miralax] 17 grams PO DAILYPRN PRN
Tramadol HCl [Ultram] 50 mg PO Q6HPRN PRN
09/20/24 07:17
Activity As Directed
Activity Level: With Assistance
Vital Signs As Directed
Frequency: Per unit guidelines
Pt Eval And Treat Routine
Activity Level: With Assistance
DX Deep Vein Thrombosis Video Routine
09/20/24 08:00
Entacapone [Comtan] 200 mg PO QID
Fluoxetine HCl [Prozac] 20 mg PO DAILY
Pantoprazole [Protonix] 40 mg PO DAILY
09/20/24 08:24
COVID-19 Antigen Stat
Source: Nasal Swab
09/20/24 18:00
Enoxaparin Sodium [Lovenox] 40 mg SC QPM
09/20/24 22:00
Ropinirole [Requip] 4 mg PO HS
Abnormal Lab Results
09/19/24 09/20/24
21:04 00:48
Absolute Monos (auto) 0.8 H 10^3/uL
(0.1-0.6)
Monocytes % 9.9 H %
(1.7-9.3)
Sodium 134 L mmol/L
(135-145)
Glucose 119 H mg/dl
(70-99)
Urine Ketones 2+ A
(Negative)
Ur Occult Blood Reflex 1+ A
(Negative)
Leukocyte Esterase Rfl 1+ A
(Negative)
Urine Bacteria (Reflex) Few A
(Negative)
Urine Albumin (Reflex) 2+ A
(Neg - Trace)
09/19/24 21:04
09/19/24 21:04
Vital Signs
Initial and Last Documented VS:
Initial Vital Signs
Temp Pulse Resp BP Pulse Ox
97.7 F 89 16 115/56 99
09/19/24 20:51 09/19/24 20:51 09/19/24 20:51 09/19/24 20:51 09/19/24 20:51
Last Documented Vital Signs
Temp Pulse Resp BP Pulse Ox
97.5 F 83 16 154/82 99
09/20/24 16:34 09/20/24 16:34 09/20/24 16:34 09/20/24 16:34 09/20/24 18:48
*Pulse Oximetry
SaO2: 96
Oxygen Mode of Delivery: Room air
Patient hypoxic: no
*Critical Care Note
Total Time (30-74mins, 75-104mins- exclusive of procedures): Not Applicable
Update Note
Update Note:
NAME: TAMAR LAMA Joslyn
DATE OF EXAM: 09/20/2024
Patient No: [id number]
Physician: HUSSEIN^Elian
Date of : 1945
Past Medical History (entered by Technologist):
Reason For Exam (entered by Technologist):
Other Notes (entered by Technologist): pt with fall. decreased cognition and verbal skills. was being treated for a UTI but then got a call to state that it was not a UTI. here to see why she is declining. daughter states shes had a lot of issues
with urination. daughter also states pt has been becoming weaker and unable to get around safely. thinking its related to an infection
Additional Information (per [facility] Radiologist):
CT abdomen and pelvis with IV contrast
IMPRESSION:
Constipation without bowel obstruction or perforation. Stomach decompressed. Bladder is decompressed.
No cholecystitis, pancreatitis, or obstructing renal stone. Abdominal aorta is of normal caliber with diffuse atherosclerotic disease. Bladder is decompressed.
Acute to subacute appearing L1 vertebral body compression fracture with 30% height loss and without retropulsion. Correlate with patient's symptoms and consider MRI for further characterization.
Finalized at 4:30 AM EST
Breezy Umaña M.D.
This report has been electronically signed and verified by the Radiologist whose name is printed above.
ED Attending Note
-
Portions of this chart may have been created with voice recognition software.� Occasional wrong word or��sound alike� substitutions may have occurred due to the inherent limitations of voice recognition software.
Discharge Plan
Departure
Patient Disposition: Admit
Date of Disposition: 09/20/24
Time of Disposition: 04:34
Presentation/result/management discussed w/ accepting MD/DO: Hospitalist
Discharge Problem:
Weakness, Constipation
Interventions
Interventions:
*Risk Screen - Suicide Last Done: 09/20/24 16:44
*General Assessment Last Done: 09/19/24 20:51
*Neglect/Abuse Screening Last Done: 09/19/24 20:51
*ED- Fall Risk Assessment Last Done: 09/19/24 22:53
*ED COVID-19 Vaccine History Last Done: 09/20/24 16:44
*Nursing Disposition Last Done: 09/20/24 15:53
ED- Cardiac Assessment Last Done: 09/19/24 23:15
ED- Neurological Assessment Last Done: 09/19/24 23:15
ED- Pulmonary Assessment Last Done: 09/19/24 23:15
Discharge Date and Time
Discharge Date/Time: 09/20/24 16:08
[2024-09-19 23:00] VITALS: BP 96/52
[2024-09-19] MEDS: NSS 1000 IV (23:18)
[2024-09-20] VITALS (14 sets, daily range): BP systolic 97–170; BP diastolic 42–97; PULSE 80–92; O2SAT 98; BMI 25.5
[2024-09-20 00:58] LABS: Urine Character Clear (Clear)
[2024-09-20 02:22] LABS: Urine Red Blood Cell 0-2 /HPF (0-2); Urine White Cell 0-2 /HPF (0-5)
--- NOTE | 2024-09-20 02:23 | DOWNTIME ---
There was a [employer] Client Computer Hardware Developer Downtime on 09/20/2024 from 0100 to 09/20/2024 at 0220. Downtime documentation of patient's care, including medication administrations, has been reconciled in the electronic record per guidelines. Refer to the
patient's paper chart under the miscellaneous tab to see printed paper medication records and downtime forms.
[2024-09-20] MEDS: ROCEPHIN 1000 MG IV (02:47)
--- NOTE | 2024-09-20 04:47 | HPS.HSE ---
Family Physician
-
Family Physician: Lloyd Mendoza
Chief Complaint
-
Weakness
History of Present Illness
This is a 79-year-old female was past medical history significant for Parkinson disease and orthostatic hypotension presents to the emergency department with progressive decline in ambulatory function and ability to manage it with activities of
daily living and a fall.
According to the patient she has been feeling this way for about 1 week. About 1 week ago while she was staying with her granddaughter she was doing physical therapy ambulatory and carry on with activities of daily living without any difficulty.
Granddaughter could not recognize the patient because she had declined significantly according to the granddaughter. Patient now states that she is having generalized pain which she points to epigastric region left upper quadrant, right upper
quadrant, chest and shoulder. She reports that she is short of breath. She reports a headache. Reports flank pain. She also states that she is having difficulty speaking although she was speaking clearly to me during the interview. Family
reported that she had urinary symptoms and was diagnosed with a UTI and started on antibiotics but this was discontinued as patient was confirmed not to have a UTI. She denies any sick contacts. She has not been having any diarrhea nausea or
vomiting. She states that she has been weak enough that she is unable to move her legs. She denies having any pain with movement. She denied lightheadedness but reports that she sometimes feels dizzy. Patient reported that she did fall today and
hit her head. She is unable to explain the circumstances of the fall.
Apparently she has had a longstanding history of complaints of chest pain abdominal pain without any clear etiology as well as the constant head pressure. Spouse reports previous numerous complaints with negative workup including abdominal and
chest pain complaints with previous evaluations including an EKG and blood work returning normal results. He mentions the patient has blurred vision and burning in her eyes, with previous ophthalmology visits showing no abnormalities.
In the emergency department she had a temp of 97.5, pulse of 89 blood pressure of 96/50 and a respirate of 16. She was satting 98% on room air. CT of the head showed no acute intracranial process. UA was negative. She had a CT of the abdomen and
pelvis which showed no acute intra-abdominal pathology. She did have a acute to subacute appearing L1 vertebral body compression fracture.
Medical History
Past Medical History
Past Medical History: Reports Other (Parkinson's, anxiety,)
Past Surgical History: Reports None
Social History
Tobacco: Non-smoker
Alcohol: None
Drug: None
Family History
Family History: Not pertinent
Allergies / Home Medications
Allergies reflects when Allergies were last updated in [employer].
Home Medications with original date entered in [employer]
Allergy/Medication List:
Allergies
Allergy/AdvReac Type Severity Reaction Status Date / Time
No Known Allergies Allergy Verified 03/25/24 10:11
Home Medications
omeprazole magnesium 20 mg capsule,delayed release 40 mg (2 x 20 mg) PO BID #56 caps 03/25/24
Review of Systems
-
Constitutional: Reports No Symptoms
EENT: Reports No Symptoms
Respiratory: Reports No Symptoms
Cardiac: Reports No Symptoms
Abdomen/GI: Reports No Symptoms
: Reports No Symptoms
Musculoskeletal: Reports No Symptoms
Skin: Reports No Symptoms
Neurological: Reports Headache and Weakness
Endocrine: Reports No Symptoms
Hematologic/Lymphatic: Reports No Symptoms
Psych: Reports No Symptoms
Physical Exam
Vital Signs
Vital Signs
Temp Pulse Resp BP Pulse Ox
97.5 F 89 16 96/52 98
09/20/24 02:56 09/19/24 20:51 09/19/24 20:51 09/19/24 23:00 09/20/24 00:15
Physical Exam
General: Well Developed, Well Nourished and No Apparent Distress
HEENT: NormoCephalic, Moist mucous membranes and Atraumatic
Respiratory: Clear
Cardiac: S1/S2 and Regular Rhythm; No Murmur or Rub
GI: Soft, Non Tender, Non Distended and Normal Bowel Sounds; No Organomegaly
Rectal: Deferred by Provider
Musculoskeletal: No Clubbing, No Cyanosis and No Edema
Skin: No Rash
Neuro: Nonfocal/grossly intact
Hematologic/Lymphatic: No Lymphadenopathy
Psych: Calm
Laboratory Results
-
09/19/24 21:04
09/19/24 21:
Laboratory Results
Total Bilirubin 0.7 mg/dl (0.2-1.3) 09/19/24 21:
AST 19 U/L (14-36) 09/19/24:
ALT < 10 U/L (0-35) 09/19/24 21:
Alkaline Phosphatase 73 U/L (38-126) 09/19/24 21:
Data Reviewed
-
CT Scan: Report Reviewed by me
Lab Data: Labs Reviewed by me
Old Records: Reviewed
Impression/Plan
-
IMPRESSION:
79-year-old female with past medical history significant for Parkinson's disease, orthostatic hypotension, vertigo presenting to the emergency department with 1 week history of weakness, generalized pain, difficulty speaking (no slurred speech),
head pressure, urinary symptoms. Nonspecific complaints with recent diagnosis of UTI although UA does not confirm UTI. Patient had a fall today without striking her head and there was no loss of consciousness. The circumstance of fall could not
be fully explained. However symptoms have not been worsened or changed by the fall. Evaluation in the ED was mostly unremarkable with a negative CT of the head, negative CT of the abdomen and pelvis, CBC been unremarkable, electrolyte
BUN/creatinine were all within normal range. UA was negative. Generalized pain and chest pain complaints have been previously evaluated with normal results. On physical exam she has normal sensation and reflexes and able to move her lower
extremities without any radicular signs. There is no evidence of myelopathy. Due to a decline of 1 week patient was sent to the emergency department for evaluation unfortunately no particular etiology noted during the ED evaluation. She started
Macrobid on September 14 to complete a 7-day course.
PLAN:
Weakness - Soft BP but no evidence of infection. Cannot rule out dehydration. Cardiac exam is unremarkable. LE examination is unremarkable. L1 compression fracture noted but does not correlate with current symptoms. Speech is fluent and clear
on examination.
- admit to med/surg observation
- check covid
- continue IV hydration for now
- s/p ceftriaxone in ED, no further abx
- orthostatic vs
- continue entacapone and ropinirole
- PT evaluation
DVT PPX - lovenox sq
Code status- full code
[2024-09-20] MEDS: PROZAC 20 MG PO (08:03)
[2024-09-20] MEDS: COMTAN 200 MG PO ×4 (08:03→22:45)
[2024-09-20] MEDS: ZOFRAN 4 MG IV (08:03)
[2024-09-20] MEDS: PROTONIX 40 MG PO (08:03)
[2024-09-20] MEDS: ULTRAM 50 MG PO (08:25)
[2024-09-20] MEDS: NSS 1000 IV ×2 (08:26→18:32)
--- NOTE | 2024-09-20 08:47 | CM ---
Addendum entered by Olimpia Mcginnis 09/20/24 15:40:
SNF recs by PT
Lengthy dc planning meeting with pt and spouse bedside
They are in agreement with plan for SNF
They are aware of limited participating SNFs in waiver program and they are in agreement
PASRR completed and referrals sent via [facility] and pending
Dr James and [facility] liaison are of dispo plan
Discharge Disposition- SNF pending [facility] waiver
Addendum entered by Olimpia Mcginnis 09/20/24 12:58:
Pt is eligible for [facility] waiver
Original Note:
CM spoke with spouse
Pt and spouse reside in a 2SH with 1 BRANDON
Pt has a first floor setup and sleeps in a reclining bed
Pt typically ambulates with B/L SPCx2 on good days, has a WW for use as needed
Pt utilizes an electric scooter or W/C while in the community- unable to self propel the W/C
Pt requires supervision and assistance with LE personal care
Pt typically privates pays for [employer] through [employer]- they are on hold as granddtr home from college for summer and helping daily
Pt is typically AxO to person and place, no behaviors, pleasant
Pt with no SNF hx and denies financial insecurities
PCP- Thea Mendoza
Rx- [facility]
PT eval pending
Pt is OBS- [facility] verbally reviewed with spouse
Copy left bedside
Discharge Disposition- home, follow for VN or higher level needs
[2024-09-20 08:58] LABS: COVID-19 Antigen Negative (Negative)
[2024-09-20] MEDS: XANAX 0.25 MG PO (10:38)
[2024-09-20] MEDS: SINEMET 25-100 1.5 TABLET PO ×3 (11:35→18:07)
--- NOTE | 2024-09-20 13:24 | CON.NEURO ---
Addendum entered and electronically signed by Ilir Pham MD 09/20/24 16:11:
Studies reviewed.
I have personally examined the patient. I reviewed and agree with the INDUSTRIAL PAINTER's Note.
My addenda:
Awake, alert, interactive. No acute distress.
Speech intact.
Follows 2-step requests w/ mild difficulty. No tremor.
Extra-ocular movements grossly intact.
Facial movements full and symmetric. Hearing intact to normal conversational volume.
Normal UE movements bilaterally.
Neck: full ROM.
Chest: no dyspnea
Heart: no JVD
Ext: (-) Clubbing, (-) Cyanosis, (-) Edema
IMPRESSIONS/RECOMMENDATIONS:
Worsening of underlying Parkinson's disease with orthostatic hypotension and Parkinson's related dementia
Continue current medication regimen
Initiate fludrocortisone 0.1 mg in the morning with hold for systolic blood pressure greater than 180
Maintain patient's head of bed greater than 30 degrees
Provide abdominal binder and encourage fluids to avoid orthostasis
Eventually reconsider the use of ropinirole for restless leg syndrome although patient reports symptoms are under good control currently
D/W patient / family / nursing
All questions answered.
Will continue to follow as outpatient.
Original Note:
Neuro Assessment/Plan
Assessment
This is a 79-year-old female with past medical history significant for Parkinson disease and orthostatic hypotension presented to [facility] on 09/19/2024 with progressive decline in ambulatory dysfunction s/p fall.
Head CT 09/19/2024: No acute intracranial abnormality noted.
Head and neck CTA 04/11/2024:
No acute intracranial hemorrhage.
Mild to moderate left proximal ICA calcified plaque with estimated luminal diameter reduction of approximately 50%. No occlusion or dissection.
Minor proximal right ICA calcified plaque without stenosis, occlusion, or dissection.
Patent bilateral vertebral arteries.
No nulato of Thompson region aneurysm or stenosis.
No cerebral artery significant plaque, stenosis, thrombus, or occlusion.
Brain MRI 07/07/2023: No acute infarct. No evidence of vestibular cochlear schwannoma. Minor chronic microvascular white matter ischemic disease. Mild to moderate atrophy. Posterior scalp or calvarial mass or collection.
Plan
Impressions: progressive ambulatory dysfunction and orthostasis with a history of Parkinson's disease diagnosed in 2008
Abdominal binder, fluids and fludrocortisone for orthostasis
Orthostatic BP checks to be continued
Continue ropinirole and fluoxetine
Continue entacapone and carbidopa/levodopa
Speech and physical therapy to improve dysphagia and gait
follow up with psychiatry outpatient for anxiety
follow up with neurology outpatient
All questions encouraged and answered, plan of care discussed with Dr. Pham, hospitalist, nurse, patient and family
Consultation
Order
Date of Consultation: 09/20/24
Requesting Provider: hospitalist
Reason for Consult: weakness
Subjective/Objective
Subjective Data
Date of Service: September 20, 2024
Adapted from note by Dr. Pham:
'Date of Service: March 26, 2024
Right-Handed
Patient presented to this [facility] emergency department 1 day ago due to long-term swallowing dysfunction beginning approximately 1 month prior to that presentation (January 2024).
Having: light-headedness, dizziness (near constant), falling three times in past year.
No longer has a routine neurologist. Diagnosed in 2008 with Parkinson disease due to tremors (patient provided incorrect date). Unclear testing performed to confirm the diagnosis.
Previously treated with physical therapy. Prior medication Carbidopa/Levodopa and Ropinirole, no change in dosing of medications recently. Previous medication of Sertraline and Duloxetine.
Patient has a long-term history of intractable headaches for which she underwent MRI of the brain in July 2023 which was described as unremarkable and the official report.
Acute onset ataxia in addition to vertigo patient with a prior history of Parkinson's disease diagnosed in 2008
Plan
check orthostatics
Continue duloxetine
Provide entacapone to add to the patient's usual carbidopa/levodopa in hopes of reducing freezing episodes that the patient describes
Patient may require amantadine dosing routinely to reduce dyskinesias
Agree with speech and physical therapy to improve dysphagia and gait'
Adapted from neurology outpatient note by Mira SANTIZO:
'Today 09/13/2024
Pt seen in the office today with her . Today her biggest complaint is her anxiety, She continues to follow up with psychiatry and is now started on Prozac and Klonopin. She continues on Carbidopa/Levodopa 25/100 mg 1.5 tables QID along with
entacapone 200 mg QID. She takes ropinerole 4 mg for restless legs at night for restless legs.� She does report unintentional movements. She has continued with therapy and is able to ambulate with assist.'
She presented to [facility] on 09/19/2024 with 1 week history of weakness, generalized pain, difficulty speaking (no slurred speech), head pressure, urinary symptoms. She states she started having difficulty voiding 3 weeks ago and gradually got worse.
She was diagnosed with UTI and started on antibiotics. Her cultures came back negative and antibiotics were subsequently discontinued. Notes difficulty with constipation. Will not have bowel movement for 2 days. Taken prune juice and over the
counter medications but not consistent. Also states she is currently dizzy with vertigo. Patient states she has neck and back pain which is chronic. Has longstanding history of complaints of chest pain abdominal pain without any clear etiology as
well as the constant head pressure. Spouse reports previous numerous complaints with negative workup including abdominal and chest pain complaints with previous evaluations including an EKG and blood work returning normal results. He mentions the
patient has blurred vision and burning in her eyes, with previous ophthalmology visits showing no abnormalities. Notes terrible anxiety and takes fluoxetine and Klonopin, follows with psychiatry. Notes speech difficulties, although on exam no
aphasia or dysarthria noted.
In the emergency department she had a temp of 97.5, pulse of 89 blood pressure of 96/50 and a respirate of 16. She was satting 98% on room air. CT of the head showed no acute intracranial process. UA was negative. She had a CT of the abdomen and
pelvis which showed no acute intra-abdominal pathology. She did have a acute to subacute appearing L1 vertebral body compression fracture.
Objective Data
Vital Signs
Temp Pulse Resp BP Pulse Ox
97.9 F 87 19 129/59 96
09/20/24 11:00 09/20/24 12:00 09/20/24 12:00 09/20/24 11:16 09/20/24 11:00
Lab Results
09/19/24 21:04
09/19/24 21:04
Sodium 134 mmol/L (135-145) L 09/19/24 21:04
Potassium 3.9 mmol/L (3.5-5.1) 09/19/24 21:04
BUN 13 mg/dl (7-17) 09/19/24 21:04
Glucose 119 mg/dl (70-99) H 09/19/24 21:04
Calcium 9.2 mg/dl (8.4-10.2) 09/19/24 21:04
Patient Allergies
No Known Allergies Allergy (Verified 03/25/24 10:11)
Review of Systems
-
History Source: Patient
Constitutional: Weakness
EENT: No Symptoms Reported
Respiratory: No Symptoms
Cardiac: No Symptoms
Abdomen/GI: Constipated
Genitourinary: Difficulty Voiding
Musculoskeletal: No Symptoms
Skin: No Symptoms
Neuro: Dizzy, Headache and Weakness
Physical Exam
-
General: No Apparent Distress and Appears Stated Age
Eyes: Round OU, [place] Conjunctivae and No Ptosis; Negative Able to visualize OU
HEENT: Anicteric and Moist Mucous Membranes
Neck: Full Range of Motion
Respiratory: No Dyspnea
Cardiac: No JVD
GI: Non-distended
Skin: Unremarkable
Extremities: No Clubbing, No Cyanosis and No Edema
Psych: Anxious and Other (repetitive )
Extended Neurological Exam
Mood & Affect: Anxious
Attention Span & Concentration: Awake, Alert, Interactive and No Difficulty with 2 Step Request
Memory: Unremarkable
Tremor: Hand Tremor Absent and Head Tremor Absent
Involuntary Movement: Other (dyskinesia)
Speech: Quantity Unremarkable and Other (hypophonic )
Cranial Nerve II: Left Eye: Pupillary Reactivity Unremarkable, Pupillary Size Unremarkable and Visual Brandon Intact
Cranial Nerve II: Right Eye: Pupillary Reactivity Unremarkable, Pupillary Size Unremarkable and Visual Brandon Intact
Cranial Nerves III, IV, : Extraocular Movement: Slow Saccades and Other (upgaze restriction)
Cranial Nerve VII: Facial Symmetry: Normal Facial Symmetry
Cranial Nerve VIII: Hearing: Unremarkable Hearing to Normal Conversational Volume
Cranial Nerves IX, X: Palate Movement: Palate Elevation Symmetric
Cranial Nerve XI: Shoulder Shrug: Unremarkable
Cranial Nerve XII: Tongue Protusion: Midline
Muscle Strength, Overall: Full Throughout
Muscle Bulk & Tone: Bulk Unremarkable and Tone Unremarkable
Pronator Drift: No Drift in Upper Extremities and No Drift in Lower Extremities
Deep Tendon Reflexes: Trace Throughout
Touch Sensation: Unremarkable
Data Reviewed
-
CT-A: Report Reviewed and Image Reviewed
CT Head: Report Reviewed and Image Reviewed
Orthostatic Testing: Ordered and Report Reviewed
Labs: Report Reviewed
Reviewed with: Physician, Nurse, Patient and Family
Old Records: Summarized
Medications
-
Active Medications
Generic Name Dose Route Start Last Admin
Trade Name Freq PRN Reason Stop Dose Admin
Acetaminophen 650 mg 09/20/24 07:17
Acetaminophen 325 Mg Tablet PO 10/18/24 07:16
Q4HPRN PRN
mild pain/SANCHEZ/temp> 100.4F
Bisacodyl 10 mg 09/20/24 07:17
Bisacodyl 10 Mg Rectal Suppository RECTAL 10/18/24 07:16
[id number] PRN
constipation
Carbidopa/Levodopa 1.5 tablet 09/20/24 11:00 09/20/24 11:35
Carbidopa (25 Mg)/Levodopa (100 Mg) Regular Release Tablet PO 10/18/24 10:59 1.5 tablet
QID@07,11,14,19 ROHITH Administration
Clonazepam 0.5 mg 09/20/24 16:00
Clonazepam 1 Mg Tablet PO 10/18/24 15:59
TID ROHITH
Enoxaparin Sodium 40 mg 09/20/24 18:00
Enoxaparin Sodium 40 Mg/0.4 Ml Syringe SC 10/18/24 17:59
QPM ROHITH
Entacapone 200 mg 09/20/24 08:00 09/20/24 13:00
Entacapone 200 Mg Tablet PO 10/18/24 07:59 200 mg
QID ROHITH Administration
Fluoxetine HCl 20 mg 09/20/24 08:00 09/20/24 08:03
Fluoxetine 20 Mg Capsule PO 10/18/24 07:59 20 mg
DAILY ROHITH Administration
Sodium Chloride 1,000 mls @ 75 mls/hr 09/20/24 07:17 09/20/24 08:26
Nss IV 1,000 mls
[id number] ROHITH Administration
Ondansetron HCl 4 mg 09/20/24 07:17 09/20/24 08:03
Ondansetron 4 Mg/2 Ml Vial IV 10/18/24 07:16 4 mg
Q6HPRN PRN Administration
nausea and vomiting
Pantoprazole Sodium 40 mg 09/20/24 08:00 09/20/24 08:03
Pantoprazole 40 Mg Delayed Release Tablet PO 10/18/24 07:59 40 mg
DAILY ROHITH Administration
Polyethylene Glycol 17 grams 09/20/24 07:17
Polyethylene Glycol Powder 17 Grams Packet PO 10/18/24 07:16
DAILYPRN PRN
constipation
Ropinirole HCl 4 mg 09/20/24 22:00
Ropinirole 2 Mg Tablet PO 10/18/24 21:59
HS ROHITH
Senna/Docusate Sodium 1 tablet 09/20/24 07:17
Docusate W/Senna (Veronica-Colace) Tablet PO 10/18/24 07:16
BIDPRN PRN
constipation
Sodium Chloride 0 flush 09/20/24 08:00
Sodium Chloride 0.9% (Flush) Syringe IV 10/18/24 07:59
PER PROTOCOL ROHITH
Tramadol HCl 50 mg 09/20/24 07:17 09/20/24 08:25
Tramadol Hcl 50 Mg Tablet PO 10/18/24 07:16 50 mg
Q6HPRN PRN Administration
moderate pain
Home Medications
�Medication �Instructions �Recorded
carbidopa 25 mg-levodopa 100 mg 1.5 tab PO QID@,,,03/25/24
tablet PARKINSONS
cholecalciferol (vitamin D3) 25 25 mcg PO DAILY Supplement 09/20/24
mcg (1,000 unit) tablet (Vitamin
D3)
clonazepam 1 mg tablet 0.5 mg PO TID Anxiety 09/20/24
entacapone 200 mg tablet 200 mg PO QID@,,,09/20/24
Neurological Condition
fluoxetine 20 mg capsule 20 mg PO DAILY Mental 09/20/24
Health/Anxiety
nitrofurantoin 100 mg PO BID UTI 09/20/24
monohydrate/macrocrystals 100 mg
capsule (Macrobid)
pantoprazole 40 mg tablet,delayed 40 mg PO DAILY Gastrointestinal 09/20/24
release (Protonix) Issue
ropinirole 4 mg tablet,extended 4 mg PO HS Neurological Condition 09/20/24
release 24 hr
[2024-09-20] MEDS: FLORINEF 0.1 MG PO (15:33)
[2024-09-20] MEDS: KLONOPIN 0.5 MG PO ×2 (15:58→22:57)
[2024-09-20] MEDS: DITROPAN 5 MG PO (16:42)
[2024-09-20] MEDS: LOVENOX 40 MG SC (18:07)
--- NOTE | 2024-09-20 18:41 | PTCARENOTE ---
Received pt from ED in the bed, into room 411-1. Pt w/ hx of falls and parkinsons, bed alarm in place. NS@ 75ml/hr running in R AC. Assist x1-2 to BSC. and son at bedside. No complaints at this time
[2024-09-20] MEDS: MELATONIN 5 MG PO (22:45)
[2024-09-20] MEDS: REQUIP 4 MG PO (22:45)
[2024-09-21] VITALS (7 sets, daily range): BP systolic 98–171; BP diastolic 47–89; PULSE 64–81; O2SAT 98
[2024-09-21] MEDS: SINEMET 25-100 1.5 TABLET PO ×4 (05:48→18:14)
[2024-09-21 07:33] LABS: Hematocrit 34.7 % (37.0-47.0); Hemoglobin 12.0 g/dL (12.0-16.0); Mean Corp Hgb Conc. 34.6 g/dL (33.0-37.0); Mean Corpuscular Volume 87.4 fL (81.0-99.0); Platelet Count 275 10^3/uL (130-400); Red Cell Dist. Width 12.7 % (11.5-14.5)
[2024-09-21 08:21] LABS: Blood Urea Nitrogen 10 mg/dl (7-17); Calcium 8.5 mg/dl (8.4-10.2); Carbon Dioxide 25 mmol/L (22-30); Chloride 109 mmol/L (98-107); Estimated Creatinine Clearance 57 ml/min; Glucose 101 mg/dl (70-99); Potassium 4.3 mmol/L (3.5-5.1); Sodium 136 mmol/L (135-145); eGFR > 60.00
[2024-09-21] MEDS: COMTAN 200 MG PO ×4 (08:32→21:50)
[2024-09-21] MEDS: KLONOPIN 0.5 MG PO ×3 (08:32→21:49)
[2024-09-21] MEDS: PROZAC 20 MG PO (08:33)
[2024-09-21] MEDS: FLORINEF 0.1 MG PO (08:33)
[2024-09-21] MEDS: PROTONIX 40 MG PO (08:33)
--- NOTE | 2024-09-21 11:37 | CM ---
Addendum entered by Julia Aragon 09/21/24 15:42:
Met with patient and at bedside. Informed of possible discharge tomorrow. Per [facility] admissions, will contact [facility] regarding waiver auth. UPdated hospitalist of bed availability. Will need ambulance transport.
Original Note:
Chart reviewed. Met with pt and spouse at bedside. Pt preference for SNF is #1 [facility], #2 [facility]. [facility] and [facility], both accepted pt. PT recommends SNF. Waiting on [facility] approval Update to [facility]. D/C date
not determined at this time.Will continue to follow for D?C planning.
Plan: SNF [facility] preferred
[2024-09-21] MEDS: NSS 1000 IV (12:17)
--- NOTE | 2024-09-21 14:27 | W.PN.HOSP.TC ---
Today's Communication/Plan
-
d/c planning for snf rehab
Assessment / Plan
Assessment / Plan
1. Generalized weakness
- No signs of overt infection.
- Question of possible orthostatic hypotension playing role, although vital negative
- COVID-negative
- Patient provided IV hydration
- PT OT evaluated and appropriate for half-way facility rehab placed
2. Abnormal urinalysis
- Patient was provided short course of antibiotic and outpatient basis.
- Also got IV Rocephin in ER
- Urine culture is negative
- Hold on further antibiotics and monitor, no clinical supporting signs of elevated WBC/fever/dysuria to support active urinary tract infection
3. Parkinson's disease
- Evaluated by neurology patient to continue on home dose of entacapone/Sinemet/ropinirole
4. Anxiety
- Continue home dose of Klonopin
- Patient required to be given dose of Xanax to help with anxiety in ER
5. Suspected overactive bladder
- Reportedly patient have urinary urgency and frequency
- With history of Parkinson's suspecting autonomic dysfunction
- Trial of oxybutynin 5 mg twice daily
- Patient will benefit with urology follow-up for urodynamic study for further evaluation if continues to have problematic symptom
DVT prophylaxis -Lovenox
DNR
Anticipated Discharge: Today
Subjective/Interval History
-
Date of Service: September 21, 2024
No new issues reported overnight
Objective Data
-
Labs:
Laboratory Results
09/21/24
07:26
WBC 4.8
Hgb 12.0
Hct 34.7 L
Plt Count 275
Sodium 136
Potassium 4.3
Chloride 109 H
Carbon Dioxide 25
BUN 10
Creatinine 0.7
Glucose 101 H
Calcium 8.5
Vital Signs:
Vital Signs
Temp Pulse Resp BP Pulse Ox
97.6 F 73 16 147/74 95
09/21/24 11:25 09/21/24 11:25 09/21/24 11:25 09/21/24 11:25 09/21/24 13:28
I&O
09/20/24 09/21/24 09/22/24
06:59 06:59 06:59
Intake Total 960 / 960
Output Total 200 / 200 1400 / 1400
Balance -200 / -200 -440 / -440
Review of Systems
-
Respiratory: Reports No Symptoms
Cardiac: Reports No Symptoms
Abdomen/GI: Reports No Symptoms
Physical Exam
-
General: No Apparent Distress and Comfortable
HEENT: Negative Oxygen
Respiratory: Clear to Auscultation
Cardiac: Regular Rhythm and S1/S2; Negative Murmur or Rub
GI: Soft, Nontender and Nondistended
Musculoskeletal: No Edema
Neuro: Awake, Alert, Oriented, No Motor Deficits and Nonfocal/Grossly Intact
Psych: Calm
[2024-09-21] MEDS: LOVENOX 40 MG SC (17:03)
[2024-09-21] MEDS: DITROPAN 5 MG PO (21:48)
[2024-09-21] MEDS: REQUIP 4 MG PO (21:50)
[2024-09-21] MEDS: MELATONIN 5 MG PO (21:50)
[2024-09-22] MEDS: SINEMET 25-100 1.5 TABLET PO ×3 (06:05→13:52)
[2024-09-22 07:20] VITALS: BP 121/65
[2024-09-22] MEDS: KLONOPIN 0.5 MG PO (07:51)
[2024-09-22] MEDS: PROZAC 20 MG PO (07:52)
[2024-09-22] MEDS: COMTAN 200 MG PO ×2 (07:52→13:52)
[2024-09-22] MEDS: PROTONIX 40 MG PO (07:52)
[2024-09-22] MEDS: FLORINEF 0.1 MG PO (07:52)
[2024-09-22] MEDS: DITROPAN 5 MG PO (07:53)
[2024-09-22 08:43] LABS: Hematocrit 34.2 % (37.0-47.0); Hemoglobin 11.8 g/dL (12.0-16.0); Mean Corp Hgb Conc. 34.5 g/dL (33.0-37.0); Mean Corpuscular Volume 87.5 fL (81.0-99.0); Platelet Count 259 10^3/uL (130-400); Red Cell Dist. Width 12.7 % (11.5-14.5)
[2024-09-22 08:53] LABS: COVID-19 Antigen Negative (Negative)
[2024-09-22 09:11] LABS: Blood Urea Nitrogen 11 mg/dl (7-17); Calcium 8.9 mg/dl (8.4-10.2); Carbon Dioxide 26 mmol/L (22-30); Chloride 108 mmol/L (98-107); Estimated Creatinine Clearance 66 ml/min; Glucose 97 mg/dl (70-99); Potassium 4.0 mmol/L (3.5-5.1); Sodium 136 mmol/L (135-145); eGFR > 60.00
[2024-09-22] MEDS: MIRALAX 17 GRAMS PO (10:11)
[2024-09-22] MEDS: SENOKOT-S 1 TABLET PO (10:11)
[2024-09-22 11:21] VITALS: BP 127/65
--- NOTE | 2024-09-22 11:31 | CM ---
Addendum entered by Yvonne Hogan 09/22/24 12:18:
correction [facility] form.
Addendum entered by Yvonne Hogan 09/22/24 12:16:
IMM completed.
transport 3 pm. facility updated.
spouse updated.
Original Note:
Patient for d/c to [facility] today under [facility] prpgram.
Ambulance transport forms completed.
Plan: [facility] today
[facility]
Report#[phone]
fax# [phone]
--- NOTE | 2024-09-22 13:46 | W.PN.HOSP.TC ---
Today's Communication/Plan
-
d/c snf rehab
Assessment / Plan
Assessment / Plan
1. Generalized weakness
- No signs of overt infection.
- Question of possible orthostatic hypotension playing role, although vital negative
- COVID-negative
- Patient provided IV hydration
- PT OT evaluated and appropriate for senior care facility rehab placed
2. Abnormal urinalysis
- Patient was provided short course of antibiotic and outpatient basis.
- Also got IV Rocephin in ER
- Urine culture is negative
- Hold on further antibiotics and monitor, no clinical supporting signs of elevated WBC/fever/dysuria to support active urinary tract infection
3. Parkinson's disease
- Evaluated by neurology patient to continue on home dose of entacapone/Sinemet/ropinirole
4. Anxiety
- Continue home dose of Klonopin
- Patient required to be given dose of Xanax to help with anxiety in ER
5. Suspected overactive bladder
- Reportedly patient have urinary urgency and frequency
- With history of Parkinson's suspecting autonomic dysfunction
- Trial of oxybutynin 5 mg twice daily
- Patient will benefit with urology follow-up for urodynamic study for further evaluation if continues to have problematic symptom
DVT prophylaxis -Lovenox
DNR
More than 30 minutes spent in discharge including
Final examination of the patient
Summarizing hospital stay
Instructions for continuing care to all relevant caregivers
Preparation of discharge records, prescriptions, and referral forms
Total time spent (in minutes): 39 mins
Anticipated Discharge: Today
Subjective/Interval History
-
Date of Service: September 22, 2024
denies of having issues overnight
Objective Data
-
Labs:
Laboratory Results
09/22/24
07:29
WBC 4.2 L
Hgb 11.8 L
Hct 34.2 L
Plt Count 259
Sodium 136
Potassium 4.0
Chloride 108 H
Carbon Dioxide 26
BUN 11
Creatinine 0.6
Glucose 97
Calcium 8.9
Vital Signs:
Vital Signs
Temp Pulse Resp BP Pulse Ox
97.8 F 56 18 127/65 99
09/22/24 11:21 09/22/24 11:21 09/22/24 11:21 09/22/24 11:21 09/22/24 11:26
I&O
09/21/24 09/22/24 09/23/24
06:59 06:59 06:59
Intake Total 960 / 960 240 / 240
Output Total 1400 / 1400 1400 / 1400
Balance -440 / -440 -1160 / -1160
Review of Systems
-
Respiratory: Reports No Symptoms
Cardiac: Reports No Symptoms
Abdomen/GI: Reports No Symptoms
Physical Exam
-
General: No Apparent Distress and Comfortable
HEENT: Negative Oxygen
Respiratory: Clear to Auscultation
Cardiac: Regular Rhythm and S1/S2; Negative Murmur or Rub
GI: Soft, Nontender and Nondistended
Musculoskeletal: No Edema
Neuro: Awake, Alert, Oriented, No Motor Deficits and Nonfocal/Grossly Intact
Psych: Calm
--- NOTE | 2024-09-22 18:11 | W.DCSUMMARY ---
Discharge Summary
Discharge Data
Date of Admission: 09/20/24
Date of Discharge: 09/22/24
-
Pending Results: No
Hospital Course
Discharging Physician : Dr Cristóbal James
Disposition : To snf
Primary care physician : Dr Lloyd Mendoza
Principal Discharge diagnosis :
Generalized weakness
Parkinson's disease
Chronic Discharge diagnosis :
Anxiety
Depression
Gastroesophageal reflux disease
Hospital Course :
Patient is 79-year-old female with no mentioned past medical history came to ER with new onset of generalized weakness within last few days. Patient have a history of Parkinson's disease and was seen by primary neurologist week back although
patient started having new onset of weakness which was rapidly progressing. In ER rapid evaluation with lab workup/screening infectious workup was negative. PT OT evaluated patient and was felt to be appropriate for residential facility
placement. Neurology was involved in care as well who recommended Orth[facility] vital checks which was negative. Although fludrocortisone was started with neurology this admission was discontinued. Patient was also felt to having overactive bladder and
for which patient was provided oxybutynin. Patient was monitored in the hospital and did not have any further issues.
Important imaging findings :
None
Procedure findings :
None
Discharge Plan
-
Patient Disposition: Retirement/SNF
Discharge Diagnosis/Procedures: Parkinson disease, Gen weakness
Condition: Fair
Diet: Regular
Activity: As tolerated
Driving Restrictions: No driving
Bathing Restrictions: OK to Shower
Referrals:
Lloyd Mendoza MD [Family Provider, Internal Medicine] - in one week
Prescriptions:
New
clonazepam [Klonopin] 0.5 mg tablet
0.5 mg PO TID Qty: 10 0RF
oxybutynin chloride 5 mg tablet
5 mg PO BID Qty: 60 0RF
Continued
carbidopa-levodopa 25-100 mg Tablet
1.5 tab PO QID@07,11,14,19
entacapone 200 mg Tablet
200 mg PO QID@
pantoprazole [Protonix] 40 mg Tablet,Delayed Release (Dr/Ec)
40 mg PO DAILY
fluoxetine 20 mg Capsule
20 mg PO DAILY
cholecalciferol (vitamin D3) [Vitamin D3] 25 mcg (1,000 unit) Tablet
25 mcg PO DAILY
ropinirole 4 mg Tablet Extended Release 24 Hr
4 mg PO HS
nitrofurantoin monohyd/m-cryst [Macrobid] 100 mg Capsule
100 mg PO BID
Rx Instructions:
for 7 days starting 09/14/24
Discontinued
clonazepam 1 mg Tablet
0.5 mg PO TID
Discharge Orders:
Discharge Patient (As Directed); Ordered 09/22/24
Ordered By: Cristóbal James
Discharge Date and Time
Discharge Date/Time: 09/22/24 15:23
Print Language: TELUGU
== END 2024-09-22 15:23 ==
LOC: 4 EAST ACU 05:22
PROVIDERS: Emergency Medicine; ADMITTING PHYSICIAN Internal Medicine; ATTENDING PHYSICIAN Hospitalist; CONSULT PHYSICIAN Psychiatry & Neurology Neurology; EMERGENCY PHYSICIAN Student in an Organized Health Care Education/Training Program; FAMILY PHYSICIAN Internal Medicine Geriatric Medicine
DX: G20.A1 Parkinson's disease without dyskinesia, without mention of fluctuations (principal); R53.1 Weakness; M48.56XA Collapsed vertebra, not elsewhere classified, lumbar region, initial encounter for fracture; K59.00 Constipation, unspecified; I95.1 Orthostatic hypotension; F32.A Depression, unspecified; F41.9 Anxiety disorder, unspecified; G25.81 Restless legs syndrome; K21.9 Gastro-esophageal reflux disease without esophagitis; X58.XXXA Exposure to other specified factors, initial encounter; Z11.52 Encounter for screening for COVID-19; Z66 Do not resuscitate; Z79.899 Other long term (current) drug therapy; Z87.891 Personal history of nicotine dependence
CPT/HCPCS: 70450; 74177; 80048; 80053; 81003; 81015; 85025; 85027; 87086; 87811; 96374; 97167; 97530; 99285; G0378; Q9967

== ENCOUNTER → 2024-10-24 10:50 | Outpatient (REF) | payer MEDICARE, OTHER, SELFPAY ==
[2024-10-24 12:00] LABS: Hematocrit 35.2 % (37.0-47.0); Hemoglobin 12.1 g/dL (12.0-16.0); Mean Corp Hgb Conc. 34.4 g/dL (33.0-37.0); Mean Corpuscular Volume 85.9 fL (81.0-99.0); Nucleated Red Blood Cells % 0 %; Platelet Count 281 10^3/uL (130-400); Red Cell Dist. Width 12.9 % (11.5-14.5)
[2024-10-24 12:30] LABS: ALT (SGPT) < 10 U/L (0-35); AST (SGOT) 16 U/L (14-36); Albumin 4.0 g/dl (3.5-5.0); Alkaline Phosphatase 71 U/L (38-126); Blood Urea Nitrogen 18 mg/dl (7-17); Calcium 9.0 mg/dl (8.4-10.2); Carbon Dioxide 27 mmol/L (22-30); Chloride 99 mmol/L (98-107); Glucose 94 mg/dl (70-99); HDL Cholesterol 101 mg/dl; LDL Cholesterol, Calculated 127 mg/dl; Potassium 4.4 mmol/L (3.5-5.1); Sodium 129 mmol/L (135-145); Total Protein 6.4 g/dl (6.3-8.2); Very Low Density Lipoprotein 12 mg/dl (0-30); eGFR > 60.00
[2024-10-24 13:00] LABS: Cortisol, Random 16.1 ug/dl
[2024-10-24 13:18] LABS: Vitamin B12 479 pg/ml (239-931)
[2024-10-25 13:53] LABS: Lyme Antibody Screen, EIA Negative (Negative)
== END ==
LOC: REG 10:50
PROVIDERS: ATTENDING PHYSICIAN Nurse Practitioner Primary Care; FAMILY PHYSICIAN Internal Medicine Geriatric Medicine
DX: R10.84 Generalized abdominal pain (principal); R26.89 Other abnormalities of gait and mobility; M62.81 Muscle weakness (generalized); R52 Pain, unspecified; E78.2 Mixed hyperlipidemia
CPT/HCPCS: 36415; 80053; 80061; 82533; 82550; 82607; 83013; 84443; 85025; 86041; 86618

== ENCOUNTER → 2025-01-09 11:27 | Outpatient (REF) | payer MEDICARE, OTHER, SELFPAY | LOC: RAD 11:27 | PROVIDERS: ATTENDING PHYSICIAN Nurse Practitioner Family; FAMILY PHYSICIAN Internal Medicine Geriatric Medicine | DX: K59.00 Constipation, unspecified (principal); W19.XXXA Unspecified fall, initial encounter; M54.50 Low back pain, unspecified | CPT/HCPCS: 72110; 74018 ==